=== PATIENT | female | born 1930 | race Caucasian/White ===

== ENCOUNTER 2016-11-24 22:33 | Emergency (ER) | payer MEDICARE ==
[~2016-11-24] VITALS: Ht 162.6 cm; Wt 75.4 kg
[~2016-11-24 22:33] MED LIST: CYCL5TAB PO; FLUT1INH; NAPR-576 PO; SYNT112T PO; TRAM50 PO; Z.0.OXYGEN INH; Z.0.OXYGENDME NC
[2016-11-24 22:41] VITALS: BP 151/60; PULSE 88; RESP 22; TEMP 97.8; O2SAT 95
[2016-11-24] MEDS ORDERED: LEVO112T2 PO (22:47)
[2016-11-24 22:52] VITALS: BP 151/60; PULSE 82; RESP 22; TEMP 97.8; O2SAT 93
[2016-11-24] MEDS ORDERED: SODIUM CHLORIDE 0.9% FLUSH 10 ML FLUSH IVF PRN (23:00)
[2016-11-24] MEDS ORDERED: ONDANSETRON HCL 4 MG/2 ML VIAL IV ONE (23:00)
[2016-11-24 23:02] VITALS: RESP 22; O2SAT 94
[2016-11-24 23:23] LABS: AUTOMATED NEUTROPHIL # 5.1 TH/MM3 (1.8-7.7); BASOPHIL # 0.3 TH/MM3 (0-0.2); BASOPHIL % 4.2 % (0.0-2.0); EOSINOPHIL # 0.1 TH/MM3 (0-0.4); EOSINOPHIL % 1.3 % (0.0-4.0); HEMATOCRIT 42.2 % (35.0-46.0); HEMO FLAGS DIFF FINAL; LYMPH % 15.2 % (9.0-44.0); LYMPHOCYTE # 1.1 TH/MM3 (1.0-4.8); MEAN CELL VOLUME 93.5 FL (80.0-100.0); MEAN CORPUSCULAR HEMOGLOBIN 31.5 PG (27.0-34.0); MEAN CORPUSCULAR HGB CONC 33.7 % (32.0-36.0); MONO % 7.4 % (0.0-8.0); NEUT % 71.9 % (16.0-70.0); PLATELET COUNT 161 TH/MM3 (150-450); RED BLOOD COUNT 4.52 MIL/MM3 (4.00-5.30); RED CELL DISTRIBUTION WIDTH 12.2 % (11.6-17.2); WHITE BLOOD COUNT 7.1 TH/MM3 (4.0-11.0)
--- NOTE | 2016-11-24 23:23 | PD ---
HPI Chief Complaint: Cardiac Complaint Time Seen by Provider: 22:53 Travel History International Travel<30 days: No Contact w/Intl Traveler<30days: No Traveled to known affect area: No History of Present Illness HPI Is a well 86 year-old woman presents to the emergency department complaining of chest pressure that started while she was eating. She was eating roast pork when she felt like he got stuck in her throat. She couldn't swallow and she couldn't get up. She tried to drink fluids but it felt like it was just all setting of her chest. This happened to her one time in the past. She's never seen a GI doctor. Last time it resolved on her own. She is feeling somewhat improved now. Likely medical history is edema and hypothyroidism. No history of heart disease. No other complaints. History Past Medical History Narrative Medical Edema Hypothyroidism Tetanus Vaccination: Unknown Influenza Vaccination: No Social History Alcohol Use: Yes (Socially) Tobacco Use: No Allergies-Medications (Allergen,Severity, Reaction): Coded Allergies: No Known Allergies (Unverified , 11/24/16) Reported Meds & Prescriptions Reported Meds & Active Scripts Active Reported Levothyroxine (Levothyroxine Sodium) 112 Mcg Tab 112 Mcg PO DAILY Review of Systems Except as stated in HPI: all other systems reviewed are Neg Physical Exam Narrative GENERAL: Well-appearing 86 year-old woman, no acute distress. SKIN: Focused skin assessment warm/dry. NECK: Trachea midline. No JVD. CARDIOVASCULAR: Regular rate and rhythm. No murmur appreciated. RESPIRATORY: No accessory muscle use. Clear to auscultation. Breath sounds equal bilaterally. GASTROINTESTINAL: Abdomen soft, non-tender, nondistended. Hepatic and splenic margins not palpable. MUSCULOSKELETAL: No obvious deformities. Pitting edema both lower extremities. NEUROLOGICAL: Awake and alert. No obvious cranial nerve deficits. Motor grossly within normal limits. Normal speech. PSYCHIATRIC: Appropriate mood and affect; insight and judgment normal. Data Data Last Documented VS Vital Signs Date Time Temp Pulse Resp B/P Pulse Ox O2 Delivery O2 Flow Rate FiO2 11/25/16 00:19 78 20 153/75 92 Room Air 11/24/16 22:52 97.8 Orders Electrocardiogram (11/24/16 22:53) Complete Blood Count With Diff (11/24/16 22:53) Comprehensive Metabolic Panel (11/24/16 22:53) Troponin I (11/24/16 22:53) Chest, Single Ap (11/24/16 22:53) Ecg Monitoring (11/24/16 22:53) Iv Access Insert/Monitor (11/24/16 22:53) Oximetry (11/24/16 22:53) Oxygen Administration (11/24/16 22:53) Sodium Chloride 0.9% Flush (Ns Flush) (11/24/16 23:00) Ondansetron Inj (Zofran Inj) (11/24/16 23:00) Labs Laboratory Tests Test 11/24/16 23:10 White Blood Count 7.1 TH/MM3 Red Blood Count 4.52 MIL/MM3 Hemoglobin 14.2 GM/DL Hematocrit 42.2 % Mean Corpuscular Volume 93.5 FL Mean Corpuscular Hemoglobin 31.5 PG Mean Corpuscular Hemoglobin 33.7 % Concent Red Cell Distribution Width 12.2 % Platelet Count 161 TH/MM3 Mean Platelet Volume 8.3 FL Neutrophils (%) (Auto) 71.9 % Lymphocytes (%) (Auto) 15.2 % Monocytes (%) (Auto) 7.4 % Eosinophils (%) (Auto) 1.3 % Basophils (%) (Auto) 4.2 % Neutrophils # (Auto) 5.1 TH/MM3 Lymphocytes # (Auto) 1.1 TH/MM3 Monocytes # (Auto) 0.5 TH/MM3 Eosinophils # (Auto) 0.1 TH/MM3 Basophils # (Auto) 0.3 TH/MM3 CBC Comment DIFF FINAL Differential Comment Sodium Level 143 MEQ/L Potassium Level 3.6 MEQ/L Chloride Level 107 MEQ/L Carbon Dioxide Level 27.7 MEQ/L Anion Gap 8 MEQ/L Blood Urea Nitrogen 21 MG/DL Creatinine 1.10 MG/DL Estimat Glomerular Filtration 47 ML/MIN Rate Random Glucose 147 MG/DL Calcium Level 9.6 MG/DL Total Bilirubin 0.4 MG/DL Aspartate Amino Transf 11 U/L (AST/SGOT) Alanine Aminotransferase 18 U/L (ALT/SGPT) Alkaline Phosphatase 82 U/L Troponin I LESS THAN 0.02 NG/ML Total Protein 7.1 GM/DL Albumin 4.0 GM/DL MDM Medical Decision Making Medical Screen Exam Complete: Yes Emergency Medical Condition: Yes Interpretation(s) LABS: CBC unremarkable. CMP generally unremarkable. Troponin negative. 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 Cannot exclude a mass. Suggest PA lateral some views of the chest to further evaluate. Lungs clear otherwise. Differential Diagnosis Esophageal meat impaction, ACS, hepatobiliary disease, other Narrative Course Medical decision-making 86 year-old woman hadn't apparent esophageal meat fractured that appears to be resolving. We'll check labs, x-ray, EKG, and if improved, likely outpatient follow-up with GI. Diagnosis Primary Impression: Esophageal obstruction due to food impaction Referrals: Andrew Darden MD call for appointment Additional Instructions: Follow-up with gastroenterology for further evaluation for possible esophageal strictures. Follow-up with your primary doctor for repeat chest x-ray Return to the emergency department for any recurrent or worsening symptoms. Chew your food until completely soft, and take small bites to try to reduce chance of recurrence. Disposition: 01 DISCHARGE HOME Condition: Stable Carlos Cabrales MD November 24, 2016 23:23
--- NOTE | 2016-11-24 23:42 | RADHPO ---
EXAM DATE/TIME: 11/24/2016 23:31 [facility] COMPARISON: CT PULMONARY ANGIOGRAM, November 04, 2013, 18:21. CHEST SINGLE AP, November 04, 2013, 16:50. INDICATIONS : Chest pain. MEDICAL HISTORY : None. SURGICAL HISTORY : None. ENCOUNTER: Initial ACUITY: 1 day PAIN SCORE: 7/10 LOCATION: Bilateral chest FINDINGS: A single frontal view the chest shows a lobulation to the right lung base. Remaining lungs are clear. No effusions. Heart is normal in size. 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 I cannot exclude a mass. I suggest PA and lateral views of the chest to further evaluate. Clear lungs o therwise. Davy Gutierrez Jr., MD on November 24, 2016 at 23:39 Board Certified Radiologist. This report was verified electronically.
[2016-11-24 23:59] LABS: CHLORIDE 107 MEQ/L (98-107); POTASSIUM 3.6 MEQ/L (3.5-5.1); SODIUM (NA) 143 MEQ/L (136-145)
[2016-11-25 00:03] LABS: ANION GAP 8 MEQ/L (5-15); BICARBONATE 27.7 MEQ/L (21.0-32.0); BLOOD UREA NITROGEN 21 MG/DL (7-18)
[2016-11-25 00:06] LABS: ALT (GPT) 18 U/L (10-53); AST (GOT) 11 U/L (15-37); GLOMERULAR FILTRATION RATE 47 ML/MIN (>89)
[2016-11-25 00:07] LABS: TOTAL BILIRUBIN ADULT 0.4 MG/DL (0.2-1.0)
[2016-11-25 00:09] LABS: ALKALINE PHOSPHATASE 82 U/L (45-117)
[2016-11-25 00:19] VITALS: BP 153/75; PULSE 78; RESP 20; O2SAT 92
--- NOTE | 2016-11-25 11:17 | EKG ---
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
== END 2016-11-25 01:06 | disposition home or self-care (01) ==
LOC: PHED 22:33
DX: K22.2 Esophageal obstruction (principal); I49.3 Ventricular premature depolarization; I45.2 Bifascicular block; E03.9 Hypothyroidism, unspecified; R60.0 Localized edema
CPT/HCPCS: 71010; 80053; 84484; 85025; 93005; 96374; 99284; J2405

== ENCOUNTER 2016-12-03 11:05 | Inpatient (IN) | payer MEDICARE ==
[~2016-12-03] VITALS: Ht 162.6 cm; Wt 72.7 kg
[~2016-12-03 11:05] MED LIST changes: -CYCL5TAB PO; -FLUT1INH; +LEVO112T2 PO; -NAPR-576 PO; -SYNT112T PO; -TRAM50 PO; -Z.0.OXYGEN INH; -Z.0.OXYGENDME NC
[2016-12-03 11:15] VITALS: BP 172/100; PULSE 78; RESP 18; TEMP 98; O2SAT 90
--- NOTE | 2016-12-03 11:37 | PD ---
HPI Chief Complaint: Hip Injury Time Seen by Provider: 11:25 Travel History International Travel<30 days: No Contact w/Intl Traveler<30days: No Traveled to known affect area: No History of Present Illness HPI 86-year-old female complains of left hip pain. Patient states that she fell from standing physician is morning. Patient states that she landed on the right side of the buttock however started having severe left-sided hip pain. Patient states that she hit her head on the floor. Patient denies loss of consciousness. Patient denies any headache. Patient denies any visual change. Patient denies any neck pain. Patient denies any chest pain or shortness of breath. Patient denies abdominal pain. Patient denies any back pain. Patient denies any focal weakness or numbness of extremity. Patient states the pain is sharp pain severe pain localized to left hip. Patient denies any pain radiation. Patient states that she is unable to have much movement of the left hip joint after the fall. On a scale of 1-10 the pain is an 8. EMS was called. Patient was given morphine 10 mg IV prior to arrival. Patient has history hypothyroidism on levothyroxine daily. PFSH Past Medical History Arthritis: Yes Asthma: No Autoimmune Disease: No Heart Rhythm Problems: No Cancer: No Cardiovascular Problems: No High Cholesterol: No Chest Pain: No Congestive Heart Failure: No COPD: No Cerebrovascular Accident: No Diabetes: No Endocrine: Yes Gastrointestinal Disorders: Yes GERD: No Genitourinary: No Hiatal Hernia: No Immune Disorder: No Musculoskeletal: Yes Neurologic: Yes Psychiatric: No Reproductive: No Respiratory: Yes Sleep Apnea: No Thyroid Disease: Yes Ulcer: No Past Surgical History Tonsillectomy: Yes Other Surgery: No Social History Alcohol Use: Yes (Socially) Tobacco Use: No Substance Use: No Allergies-Medications (Allergen,Severity, Reaction): Coded Allergies: No Known Allergies (Unverified , 11/24/16) Reported Meds & Prescriptions Reported Meds & Active Scripts Active Reported Levothyroxine (Levothyroxine Sodium) 112 Mcg Tab 112 Mcg PO DAILY Review of Systems General / Constitutional: No: Fever Eyes: No: Visual changes HENT: No: Headaches Cardiovascular: No: Chest Pain or Discomfort Respiratory: No: Shortness of Breath Gastrointestinal: No: Abdominal Pain Genitourinary: No: Dysuria Musculoskeletal: Positive: Pain Skin: No Rash Neurologic: No: Weakness Psychiatric: No: Depression Endocrine: No: Polydipsia Hematologic/Lymphatic: No: Easy Bruising Physical Exam Narrative GENERAL: Well-nourished, well-developed patient. SKIN: Focused skin assessment warm/dry. HEAD: Normocephalic. EYES: No scleral icterus. No injection or drainage. NECK: Supple, trachea midline. No JVD or lymphadenopathy. CARDIOVASCULAR: Regular rate and rhythm without murmurs, gallops, or rubs. RESPIRATORY: Breath sounds equal bilaterally. No accessory muscle use. GASTROINTESTINAL: Abdomen soft, non-tender, nondistended. MUSCULOSKELETAL: No cyanosis, or edema. Patient has moderate tenderness on palpation lateral aspect the left hip joint. Limited range of motion of the left hip secondary to pain. Sensorimotor function distally intact. BACK: Nontender without obvious deformity. No CVA tenderness. Neurologic exam: Patient's awake and alert oriented 3. No obvious focal neurological deficit. Data Data Last Documented VS Vital Signs Date Time Temp Pulse Resp B/P Pulse Ox O2 Delivery O2 Flow Rate FiO2 12/03/16 11:36 20 94 Nasal Cannula 2 12/03/16 11:15 98.0 78 172/100 Orders Electrocardiogram (12/03/16 11:32) Complete Blood Count With Diff (12/03/16 11:32) Comprehensive Metabolic Panel (12/03/16 11:32) Prothrombin Time / Inr (Pt) (12/03/16 11:32) Act Partial Throm Time (Ptt) (12/03/16 11:32) Urinalysis - C+S If Indicated (12/03/16 11:32) Thyroid Stimulating Hormone (12/03/16 11:32) Iv Access Insert/Monitor (12/03/16 11:32) Ecg Monitoring (12/03/16 11:32) Oximetry (12/03/16 11:32) Hip, Uni(Ap&Lat) W Ap Pelvis (12/03/16 11:32) Chest, Single Ap (12/03/16 11:32) Urinary Catheter Insert/Apply (12/03/16 12:24) Sodium Chlor 0.9% 1000 Ml Inj (Ns 1000 M (12/03/16 12:45) Labs Laboratory Tests Test 12/03/16 11:45 White Blood Count 7.9 TH/MM3 Red Blood Count 4.42 MIL/MM3 Hemoglobin 13.7 GM/DL Hematocrit 40.7 % Mean Corpuscular Volume 92.1 FL Mean Corpuscular Hemoglobin 31.0 PG Mean Corpuscular Hemoglobin 33.6 % Concent Red Cell Distribution Width 12.7 % Platelet Count 139 TH/MM3 Mean Platelet Volume 8.8 FL Neutrophils (%) (Auto) 80.7 % Lymphocytes (%) (Auto) 12.2 % Monocytes (%) (Auto) 6.3 % Eosinophils (%) (Auto) 0.5 % Basophils (%) (Auto) 0.3 % Neutrophils # (Auto) 6.4 TH/MM3 Lymphocytes # (Auto) 1.0 TH/MM3 Monocytes # (Auto) 0.5 TH/MM3 Eosinophils # (Auto) 0.0 TH/MM3 Basophils # (Auto) 0.0 TH/MM3 CBC Comment DIFF FINAL Differential Comment Prothrombin Time 11.2 SEC Prothromb Time International 1.0 RATIO Ratio Activated Partial 26.6 SEC Thromboplast Time Sodium Level 140 MEQ/L Potassium Level 3.9 MEQ/L Chloride Level 108 MEQ/L Carbon Dioxide Level 25.0 MEQ/L Anion Gap 7 MEQ/L Blood Urea Nitrogen 14 MG/DL Creatinine 0.72 MG/DL Estimat Glomerular Filtration 77 ML/MIN Rate Random Glucose 125 MG/DL Calcium Level 8.8 MG/DL Total Bilirubin 0.4 MG/DL Aspartate Amino Transf 21 U/L (AST/SGOT) Alanine Aminotransferase 18 U/L (ALT/SGPT) Alkaline Phosphatase 71 U/L Total Protein 6.6 GM/DL Albumin 3.7 GM/DL Thyroid Stimulating Hormone 4.070 uIU/ML 3rd Gen [facility] Medical Decision Making Medical Screen Exam Complete: Yes Emergency Medical Condition: Yes Interpretation(s) 12:36 PM. CBC within normal limit. CMP within normal limit. TSH 4.07. Differential Diagnosis Differential diagnosis including contusion, fracture, dislocation. Narrative Course 86-year-old female with left hip pain. Status post fall. Nothing by mouth. Normal saline solution 100 cc an hour. Diagnosis Primary Impression: Fracture of femur, left, closed Qualified Code: S72.142A - Closed displaced intertrochanteric fracture of left femur, initial encounter Admitting Information Admitting Physician Requests: Admit Luis Eduardo Tamayo MD December 03, 2016 11:37
[2016-12-03 11:59] LABS: AUTOMATED NEUTROPHIL # 6.4 TH/MM3 (1.8-7.7); BASOPHIL % 0.3 % (0.0-2.0); EOSINOPHIL % 0.5 % (0.0-4.0); HEMATOCRIT 40.7 % (35.0-46.0); HEMO FLAGS DIFF FINAL; LYMPH % 12.2 % (9.0-44.0); MEAN CELL VOLUME 92.1 FL (80.0-100.0); MEAN CORPUSCULAR HGB CONC 33.6 % (32.0-36.0); MONO % 6.3 % (0.0-8.0); NEUT % 80.7 % (16.0-70.0); PLATELET COUNT 139 TH/MM3 (150-450); RED BLOOD COUNT 4.42 MIL/MM3 (4.00-5.30); RED CELL DISTRIBUTION WIDTH 12.7 % (11.6-17.2); WHITE BLOOD COUNT 7.9 TH/MM3 (4.0-11.0)
[2016-12-03] MEDS ORDERED: ONDANSETRON HCL 4 MG/2 ML VIAL IV PUSH ONE (12:00)
[2016-12-03] MEDS ORDERED: PHENYLEPH/NS 1000 MCG/10 ML SYR IV ONE (12:00)
[2016-12-03] MEDS ORDERED: PROPOFOL 200 MG/20 ML AMP IV ONE (12:00)
[2016-12-03 12:09] LABS: APTT (PATIENT) 26.6 SEC (24.3-30.1); PROTHROMBIN TIME - PATIENT 11.2 SEC (9.8-11.6)
[2016-12-03 12:20] LABS: ALT (GPT) 18 U/L (10-53); ANION GAP 7 MEQ/L (5-15); AST (GOT) 21 U/L (15-37); BLOOD UREA NITROGEN 14 MG/DL (7-18); CHLORIDE 108 MEQ/L (98-107); GLOMERULAR FILTRATION RATE 77 ML/MIN (>89); POTASSIUM 3.9 MEQ/L (3.5-5.1); SODIUM (NA) 140 MEQ/L (136-145)
[2016-12-03 12:27] LABS: ALKALINE PHOSPHATASE 71 U/L (45-117); TOTAL BILIRUBIN ADULT 0.4 MG/DL (0.2-1.0)
--- NOTE | 2016-12-03 12:33 | RADRPT ---
EXAM DATE/TIME: 12/03/2016 11:52 [facility] COMPARISON: No previous studies available for comparison. INDICATIONS : Fall pain with deformity. MEDICAL HISTORY : None. SURGICAL HISTORY : None. ENCOUNTER: Initial ACUITY: 1 day PAIN SCORE: 10/10 LOCATION: Left hip FINDINGS: There is acute intertrochanteric fracture of the left hip with varus the formerly. Femoral head is no t dislocated. Osseous structures are osteopenic. The pubic symphysis is intact. CONCLUSION: 1. Intertrochanteric fracture left hip Jaylan Bermudez MD on December 03, 2016 at 12:31 Board Certified Radiologist. This report was verified electronically.
--- NOTE | 2016-12-03 12:43 | RADRPT ---
EXAM DATE/TIME: 12/03/2016 11:55 [facility] COMPARISON: CHEST SINGLE AP, November 24, 2016, 23:31. INDICATIONS : Fall pain left hip and side. MEDICAL HISTORY : None. SURGICAL HISTORY : None. ENCOUNTER: Initial ACUITY: 1 day PAIN SCORE: 10/10 LOCATION: Left hip FINDINGS: A single view of the chest demonstrates diminished lung volumes with bibasilar densities. Heart jacky l in size.. Osseous structures are intact. CONCLUSION: Bibasilar atelectasis. Khoa Ashley MD on December 03, 2016 at 12:40 Board Certified Radiologist. This report was verified electronically.
[2016-12-03] MEDS ORDERED: SODIUM CHLOR 0.9% 1000 ML INJ 1,000 ML IV SCH (12:45)
[2016-12-03] MEDS ORDERED: NAPR500T PO (14:02)
[2016-12-03 14:03] VITALS: BP 136/61; PULSE 72; RESP 16; O2SAT 96
[2016-12-03] MEDS ORDERED: MAGNESIUM HYDROXIDE SUSP 30 ML CUP PO PRN (14:30)
[2016-12-03] MEDS ORDERED: ONDANSETRON HCL 4 MG/2 ML VIAL IVP PRN ×2 (14:30→22:15)
[2016-12-03] MEDS ORDERED: NALOXONE HCL 0.4 MG/ML AMP IV PRN ×2 (14:30)
[2016-12-03] MEDS ORDERED: SODIUM CHLORIDE 0.9% FLUSH 10 ML FLUSH IV FLUSH PRN ×2 (14:30→22:15)
[2016-12-03] MEDS ORDERED: ZOLPIDEM TARTRATE 5 MG TAB PO PRN (14:30)
[2016-12-03] MEDS ORDERED: diphenhydrAMINE HCL 50 MG/ML VIAL IV PRN (14:30)
[2016-12-03] MEDS ORDERED: ACETAMINOPHEN 325 MG TAB PO PRN ×2 (14:30→22:15)
[2016-12-03] MEDS ORDERED: MORPHINE SULFATE 8 MG/ML INJ IV PUSH PRN ×2 (14:30→22:15)
[2016-12-03] MEDS ORDERED: ACETAMINOPHEN/HYDROcodone 325 MG/5 MG TAB PO PRN ×2 (14:30)
[2016-12-03] MEDS ORDERED: diphenhydrAMINE HCL 25 MG CAP PO PRN (14:30)
--- NOTE | 2016-12-03 14:38 | HHI.HP ---
HPI Service Family Medicine Primary Care Physician No Primary Care Physician Admission Diagnosis intertrochanteric fracture left femur Diagnoses: International Travel<30 Days: No Contact w/Intl Traveler<30days: No Known Affected Area: No History of Present Illness 86-year-old female currently managed for hypothyroidism, who is a patient of mine at the [facility], presented to ED with complaint of left hip pain after a fall found to have a left hip fracture. Patient states that she fell from standing this morning and landed on the right side of the buttocks and then started having severe left-sided hip pain. She hit her head on the floor, but denies loss of consciousness or a headache. She did not trip on anything, and she was not bending over. She says she did not have anything to hold onto and fell down because she lost her balance. She has fallen 4 times in past year. Denies any visual changes, neck pain, chest pain or shortness of breath or abdominal pain. Denies any back pain, or weakness or numbness of extremity. Sharp pain severe pain localized to left hip without radiation. Patient states that she was having difficulty moving the left leg after the fall. Initially an 8/10 pain, now at 6/10 after morphine by EMS. States morphine helped a little bit but not much and would like a different pain medication. (Humera Holliday MD) Review of Systems Constitutional: DENIES: Fever, Chills, Dizziness Eyes: DENIES: Blurred vision, Vision loss, Double Vision Respiratory: DENIES: Cough, Shortness of breath Cardiovascular: DENIES: Chest pain Gastrointestinal: DENIES: Abdominal pain, Constipation, Diarrhea, Nausea, Vomiting Musculoskeletal: COMPLAINS OF: Joint pain Integumentary: DENIES: Rash Neurologic: DENIES: Abnormal gait, Headache, Localized weakness (Humera Holliday MD ) Past Family Social History Past Medical History PMH: Rotator cuff (right) Frozen shoulder (left) Hypothyroid --on Synthroid "Blepharitis" per patient. (etiology unclear)- patient uses "Tobradex" (steroid containing cream) as needed, and states she's "used it forever". Peripheral vascular disease with "hole in vein in leg" PSH: none Allergies: nkda Social: Denies smoking occasional glass of wine with dinner Denies illicit drugs Had measles and mumps as a child. Also had tonsilitis OB history: menses at age 14, regular, periods stopped in late 40s 3 children--all (Humera Holliday MD) Allergies: Coded Allergies: No Known Allergies (Unverified , 11/24/16) Physical Exam Vital Signs Vital Signs Date Time Temp Pulse Resp B/P Pulse Ox O2 Delivery O2 Flow Rate FiO2 12/03/16 14:03 72 16 136/61 96 Nasal Cannula 2 12/03/16 11:36 20 94 Nasal Cannula 2 12/03/16 11:15 98.0 78 18 172/100 90 Physical Exam GENERAL: Well-nourished, well-developed patient. SKIN: Warm and dry. HEAD: Normocephalic. EYES: No scleral icterus. No injection or drainage. NECK: Supple, trachea midline. No JVD or lymphadenopathy. CARDIOVASCULAR: Regular rate and rhythm without murmurs, gallops, or rubs. RESPIRATORY: Breath sounds equal bilaterally. No accessory muscle use. GASTROINTESTINAL: Abdomen soft, non-tender, nondistended. MUSCULOSKELETAL: No cyanosis, or edema. Tenderness on palpation lateral aspect the left hip joint. Limited range of motion of the left hip secondary to pain. Sensation equal and intact of bilateral lower extremities. Moving toes of left foot well. NEURO: Patient's awake and alert oriented 3. No obvious focal neurological deficit. Laboratory Laboratory Tests Test 12/03/16 11:45 White Blood Count 7.9 Red Blood Count 4.42 Hemoglobin 13.7 Hematocrit 40.7 Mean Corpuscular Volume 92.1 Mean Corpuscular Hemoglobin 31.0 Mean Corpuscular Hemoglobin 33.6 Concent Red Cell Distribution Width 12.7 Platelet Count 139 Mean Platelet Volume 8.8 Neutrophils (%) (Auto) 80.7 Lymphocytes (%) (Auto) 12.2 Monocytes (%) (Auto) 6.3 Eosinophils (%) (Auto) 0.5 Basophils (%) (Auto) 0.3 Neutrophils # (Auto) 6.4 Lymphocytes # (Auto) 1.0 Monocytes # (Auto) 0.5 Eosinophils # (Auto) 0.0 Basophils # (Auto) 0.0 CBC Comment DIFF FINAL Differential Comment Prothrombin Time 11.2 Prothromb Time International 1.0 Ratio Activated Partial 26.6 Thromboplast Time Sodium Level 140 Potassium Level 3.9 Chloride Level 108 Carbon Dioxide Level 25.0 Anion Gap 7 Blood Urea Nitrogen 14 Creatinine 0.72 Estimat Glomerular Filtration 77 Rate Random Glucose 125 Calcium Level 8.8 Total Bilirubin 0.4 Aspartate Amino Transf 21 (AST/SGOT) Alanine Aminotransferase 18 (ALT/SGPT) Alkaline Phosphatase 71 Total Protein 6.6 Albumin 3.7 Thyroid Stimulating Hormone 4.070 3rd Gen (Humera Holliday MD) Result Diagram: 12/03/16 1145 12/03/16 1145 Imaging Last Impressions Hip and Pelvis X-Ray 12/03/16 1132 Signed Impressions: Service Date/Time: Saturday, December 03, 2016 11:52 - CONCLUSION: 1. Intertrochanteric fracture left hip Jaylan Bermudez MD Chest X-Ray 12/03/16 1132 Signed Impressions: Service Date/Time: Saturday, December 03, 2016 11:55 - CONCLUSION: Bibasilar atelectasis. Khoa Ashley MD (Humera Holliday MD) Assessment and Plan Assessment and Plan 86 yo female presented with left hip pain status post fall found to have left hip fracture Code Status DNR Discussed Condition With Discussed with patient's at bedside SDW Dr. Shea (Humera Holliday MD) Attending Attestation Patient seen and examined. Case reviewed and discussed with the resident team. Agree with plan of care as discussed with me and documented in the resident note. (Alyssa Shea MD) Problem List: (1) Fracture of femur, left, closed Status: Acute Plan: Hip Xray shows intertrochanteric fracture of left hip. CBC & CMP WNL. Plan: * Consulted Orthopedics, ER physician already spoke to ortho and they would like patient NPO for now with possible surgery later today or tomorrow * Nothing by mouth. * Normal saline solution 100 cc an hour * Dilaudid and Dunmor PO PRN pain * Zofran PRN * UA pending (2) Hypothyroid Status: Chronic Plan: TSH elevated at 4.07 (normal 0.3-3.7) Plan: * Increase home Synthroid from 112 ug to 125 ug daily * Will need to recheck TSH in 6 weeks as outpatient (3) Dietary surveillance and counseling Status: Chronic Plan: Plan: * NPO for possible surgical intervention today * Electrolytes normal, daily BMP * NS at 100 cc/hr (4) DVT prophylaxis Status: Chronic Plan: SCD nonoperative leg (Humera Holliday MD) Physician Certification 2 Midnight Certification Type: Admission for Inpatient Services Order for Inpatient Services The services are ordered in accordance with Medicare regulations or non- Medicare payer requirements, as applicable. In the case of services not specified as inpatient-only, they are appropriately provided as inpatient services in accordance with the 2-midnight benchmark. Estimated LOS (days): 2 2 days is the estimated time the patient will need to remain in the hospital, assuming treatment plan goals are met and no additional complications. Post-Hospital Plan: Not yet determined (Humera Holliday MD) Problem Qualifiers (1) Fracture of femur, left, closed: Qualified Code: S72.142A - Closed displaced intertrochanteric fracture of left femur, initial encounter (2) Hypothyroid: Qualified Code: E03.9 - Acquired hypothyroidism Humera Holliday MD December 03, 2016 14:38 Alyssa Shea MD December 04, 2016 13:12
[2016-12-03] MEDS ORDERED: hydrALAZINE HCL 10 MG TAB PO PRN (14:45)
[2016-12-03] MEDS ORDERED: SENNOSIDES 8.6 MG TAB PO PRN (14:45)
[2016-12-03] MEDS ORDERED: cloNIDine HCL 0.1 MG TAB PO PRN (14:45)
[2016-12-03] MEDS ORDERED: HYDROmorphone HCL PF 1 MG/ML VIAL IV PUSH PRN (15:15)
[2016-12-03 15:48] VITALS: BP 109/53; PULSE 71; RESP 16; O2SAT 97
[2016-12-03 16:55] VITALS: BP 141/65; PULSE 71; RESP 19; TEMP 95.9; O2SAT 93
--- NOTE | 2016-12-03 17:47 | PD.CONS ---
cc: Demetrius Wright MD HPI Service Orthopedic Surgeons Consult Requested By ED staff Reason for Consult Left hip fracture Primary Care Physician No Primary Care Physician Admission Diagnosis intertrochanteric fracture left femur Diagnoses: (1) COPD (chronic obstructive pulmonary disease) (2) Hypothyroidism (3) Intertrochanteric fracture of left femur Chief Complaint: Left hip pain History of Present Illness 86-year-old female currently managed for hypothyroidism, who is a patient of mine at the [facility], presented to ED with complaint of left hip pain after a fall found to have a left hip fracture. Patient states that she fell from standing this morning and landed on the right side of the buttocks and then started having severe left-sided hip pain. She hit her head on the floor, but denies loss of consciousness or a headache. She did not trip on anything, and she was not bending over. She says she did not have anything to hold onto and fell down because she lost her balance. She has fallen 4 times in past year. Denies any visual changes, neck pain, chest pain or shortness of breath or abdominal pain. Denies any back pain, or weakness or numbness of extremity. She denies any other extremity complaints related to the fall. Sharp pain severe pain localized to left hip without radiation. Patient states that she was having difficulty moving the left leg after the fall. She was admitted to the medical service with orthopedic consultation requested. Review of Systems Reviewed and well outlined in the medical record Past Family Social History Past Medical History Past Medical History PMH: Rotator cuff (right) Frozen shoulder (left) Hypothyroid --on Synthroid "Blepharitis" per patient. (etiology unclear)- patient uses "Tobradex" (steroid containing cream) as needed, and states she's "used it forever". Peripheral vascular disease with "hole in vein in leg" PSH: none Allergies: nkda Social: Denies smoking occasional glass of wine with dinner Denies illicit drugs Had measles and mumps as a child. Also had tonsilitis OB history: menses at age 14, regular, periods stopped in late 40s 3 children--all Allergies: Coded Allergies: No Known Allergies (Unverified , 11/24/16) Allergies: Coded Allergies: No Known Allergies (Unverified , 11/24/16) Active Ordered Medications Current Medications Medications (Trade) Dose Ordered Sig/Kaya Route Start Time Stop Time Status Last Admin (NS 1000 ml Inj) 1,000 ml @ 100 mls/hr Q10H IV 12/03/16 12:45 12/03/16 14:02 (Synthroid) 125 mcg DAILY@0600 PO 12/04/16 06:00 (NS Flush) 2 ml UNSCH PRN IV FLUSH 12/03/16 14:30 (NS Flush) 2 ml BID IV FLUSH 12/03/16 21:00 (Leigh 5-325 Mg) 1 tab Q4H PRN PO 12/03/16 14:30 (Leigh 5-325 Mg) 2 tab Q4H PRN PO 12/03/16 14:30 (Zofran Inj) 4 mg Q6H PRN IVP 12/03/16 14:30 (Tylenol) 650 mg Q4H PRN PO 12/03/16 14:30 (Milk Of Magnesia Liq) 30 ml Q6H PRN PO 12/03/16 14:30 (Benadryl Inj) 25 mg Q4H PRN IV 12/03/16 14:30 (Benadryl) 25 mg Q4H PRN PO 12/03/16 14:30 (Ambien) 5 mg HS PRN PO 12/03/16 14:30 (Narcan Inj) 0.4 mg UNSCH PRN IV 12/03/16 14:30 (Catapres) 0.1 mg Q4HR PRN PO 12/03/16 14:45 (Apresoline) 10 mg Q4HR PRN PO 12/03/16 14:45 (Senokot) 8.6 mg BID PRN PO 12/03/16 14:45 (Dilaudid Pf Inj) 1 mg Q4H PRN IV PUSH 12/03/16 15:15 12/03/16 15:47 Reported Meds & Active Scripts Active Reported Naproxen 500 Mg Tab 500 Mg PO PRN Levothyroxine (Levothyroxine Sodium) 112 Mcg Tab 112 Mcg PO DAILY Physical Exam Vital Signs Vital Signs Date Time Temp Pulse Resp B/P Pulse Ox O2 Delivery O2 Flow Rate FiO2 12/03/16 16:55 95.9 71 19 141/65 93 12/03/16 16:27 14 12/03/16 15:48 71 16 109/53 97 Nasal Cannula 2 12/03/16 14:03 72 16 136/61 96 Nasal Cannula 2 12/03/16 11:36 20 94 Nasal Cannula 2 12/03/16 11:15 98.0 78 18 172/100 90 Physical Exam The patient is awake alert and answers questions appropriately. She is in moderate discomfort. She has pain with any attempted movement of the left lower extremity. The extremity is shortened and external rotated. She is able to move her toes freely and has good capillary refill and sensation. There are no localizing signs of upper extremity or right lower extremity injury. Laboratory Laboratory Tests Test 12/03/16 11:45 White Blood Count 7.9 Red Blood Count 4.42 Hemoglobin 13.7 Hematocrit 40.7 Mean Corpuscular Volume 92.1 Mean Corpuscular Hemoglobin 31.0 Mean Corpuscular Hemoglobin 33.6 Concent Red Cell Distribution Width 12.7 Platelet Count 139 Mean Platelet Volume 8.8 Neutrophils (%) (Auto) 80.7 Lymphocytes (%) (Auto) 12.2 Monocytes (%) (Auto) 6.3 Eosinophils (%) (Auto) 0.5 Basophils (%) (Auto) 0.3 Neutrophils # (Auto) 6.4 Lymphocytes # (Auto) 1.0 Monocytes # (Auto) 0.5 Eosinophils # (Auto) 0.0 Basophils # (Auto) 0.0 CBC Comment DIFF FINAL Differential Comment Prothrombin Time 11.2 Prothromb Time International 1.0 Ratio Activated Partial 26.6 Thromboplast Time Sodium Level 140 Potassium Level 3.9 Chloride Level 108 Carbon Dioxide Level 25.0 Anion Gap 7 Blood Urea Nitrogen 14 Creatinine 0.72 Estimat Glomerular Filtration 77 Rate Random Glucose 125 Calcium Level 8.8 Total Bilirubin 0.4 Aspartate Amino Transf 21 (AST/SGOT) Alanine Aminotransferase 18 (ALT/SGPT) Alkaline Phosphatase 71 Total Protein 6.6 Albumin 3.7 Thyroid Stimulating Hormone 4.070 3rd Gen Result Diagram: 12/03/16 1145 12/03/16 1145 Imaging Last 48 hours Impressions Hip and Pelvis X-Ray 12/03/16 1132 Signed Impressions: Service Date/Time: Saturday, December 03, 2016 11:52 - CONCLUSION: 1. Intertrochanteric fracture left hip Jaylan Bermudez MD Chest X-Ray 12/03/16 1132 Signed Impressions: Service Date/Time: Saturday, December 03, 2016 11:55 - CONCLUSION: Bibasilar atelectasis. Khoa Ashley MD Assessment & Plan Problem List: (1) COPD (chronic obstructive pulmonary disease) (2) Hypothyroidism (3) Intertrochanteric fracture of left femur Assessment and Plan The findings were discussed. Recommendations are given for surgical fixation to allow mobilization and pain control. The nature of the procedure, the risks , expected benefits, as well as the postoperative expectations were discussed with her in detail. In addition, the alternatives to treatment and risk of same were discussed. She acknowledges full understanding and agrees to it. Demetrius Wright MD December 03, 2016 17:47
[2016-12-03 18:55] LABS: BACTERIA, URINE RARE /hpf; BLOOD, URINE NEG (NEG); COMMENT (UR) CULT NOT INDICATED; CULTURE IF INDICATED CULT NOT INDICATED; GLUCOSE,URINE NEG (NEG); KETONE, URINE NEG (NEG); MUCUS URINE FEW /lpf (OCC); NITRITE,URINE NEG (NEG); SQUAMOUS EPITHELIAL CELL URINE <1 /hpf (0-5); URINE COLOR YELLOW (YELLW/STRAW)
[2016-12-03] MEDS ORDERED: GENTAMICIN SULFATE 80 MG/2 ML VIAL ONE (18:59)
[2016-12-03 19:30] VITALS: BP 178/82; PULSE 91; RESP 18; TEMP 96; O2SAT 99
[2016-12-03] MEDS ORDERED: POVIDONE IODINE 5% (ANTISEPSIS KIT) 4 APPLICATIONS EACH NARE PRN (20:00)
[2016-12-03] MEDS ORDERED: CHLORHEXIDINE GLUCONATE 2 % 1 PACK (2 CLOTHS) TOPICAL PRN (20:00)
[2016-12-03] MEDS ORDERED: INSULIN HUMAN REGULAR 1,000 UNITS/10 ML VIAL SQ PRN (20:00)
[2016-12-03] MEDS ORDERED: LACTATED RINGER'S 1000 ML IV PRN (20:00)
[2016-12-03] MEDS ORDERED: METOPROLOL TARTRATE 25 MG TAB PO PRN (20:00)
[2016-12-03] MEDS ORDERED: SODIUM CHLORID 0.9% 500 ML IV PRN (20:00)
[2016-12-03] MEDS ORDERED: ceFAZolin 2 GM PREMIX 50 ML ONE (20:22)
[2016-12-03] MEDS ORDERED: ACETAMINOPHEN 1000 MG/100 ML VIAL IV ONE (20:23)
[2016-12-03] MEDS ORDERED: fentaNYL CITRATE 250 MCG/5 ML AMP ONE (20:23)
[2016-12-03] MEDS ORDERED: FAMOTIDINE 20 MG/2 ML VIAL ONE (20:24)
[2016-12-03] MEDS ORDERED: SODIUM CHLORIDE 0.9% FLUSH 10 ML FLUSH IV FLUSH SCH (21:00)
--- NOTE | 2016-12-03 22:05 | PD.OP ---
cc: Demetrius Wright MD Operative Report Date of Surgery: December 03, 2016 Preoperative Diagnosis: (1) Intertrochanteric fracture of left femur Postoperative Diagnosis: (1) Intertrochanteric fracture of left femur Procedure: Closed reduction with trochanteric nail fixation left proximal femur fracture Implants used: Synthes intermediate troch nail Anesthesia: general Surgeon: Demetrius Wright Pets Salesperson(s): OR staff Operation and Findings: Indications: This 86-year-old female who has had multiple falls recently fell onto her left hip. She had pain and inability to ambulate. She presented to [facility]. X-rays revealed a displaced intertrochanteric fracture of the proximal femur. Recommendations are given for internal fixation. Procedure and findings: The patient was taken to the operative suite and after undergoing an adequate level of general anesthesia was placed supine on the fracture table. The right lower extremity was positioned in skin traction and the preoperative reduction checked in both the AP and lateral planes with the C- arm. There was noted to be a large greater trochanteric fragment which extended distally. It was then prepped and draped in usual sterile fashion with ChloraPrep. Preoperative antibiotic consisted of Ancef 2 g IV. An incision was made over the lateral aspect of the hip extending from the greater trochanter for distance approximately 3 cm. This was carried down to skin and subcutaneous tense tissue with a knife. Hemostasis was obtained electrocautery. The muscular fascia was incised and split longitudinally. An entry point was selected at the tip of the greater trochanter. This was entered with a threaded guidepin. The position was checked in both the AP and lateral planes with the C-arm. It was subsequently overdrilled. An 11 x 130 Synthes intermediate trochanteric nail was then impacted in the place. Utilizing the outrigger device an additional incision was made distally. A threaded guidepin was advanced through the lateral cortex, across the nail, into the femoral neck and seated in the subchondral bone of the femoral head. The position was checked in both the AP and lateral planes with the C-arm. A measurement was then made. A 95 compression screw was selected. The lateral cortex was overdrilled. The screw was then seated. The locking mechanism was then seated proximally. Utilizing the outrigger device a percutaneous incision was made distally. A trocar was placed against the lateral cortex. The distal interlocking screw hole was drilled and the appropriate length screw placed. The position of the fracture reduction and placement of the internal fixation were checked in both the AP and lateral planes with the C-arm. The wounds were then thoroughly irrigated. They were closed in layers utilizing 0 Vicryl suture on the muscular fascia, 2-0 Vicryl suture on the subcutaneous tense tissue and kvng on the skin. Sterile dressings were applied, the patient was awakened, transferred to the hospital bed and taken to the recovery room in stable condition. Estimated blood loss: 100 cc Complications: None Demetrius Wright MD December 03, 2016 22:05
[2016-12-03] MEDS ORDERED: BISACODYL 10 MG SUPP RECTAL PRN (22:15)
[2016-12-03] MEDS ORDERED: TEMAZEPAM 15 MG CAP PO PRN (22:15)
[2016-12-03] MEDS ORDERED: ALUMINUM/MAGNESIUM/SIMETH 30 ML CUP PO PRN (22:15)
[2016-12-03] MEDS ORDERED: Post-op Orders (for Pharmacy) MISC XX ONE (22:15)
[2016-12-03] MEDS ORDERED: POVIDONE IODINE 10% SOLN 118 ML BOTTLE TOPICAL PRN (22:15)
[2016-12-03] MEDS ORDERED: MORPHINE SULFATE 4 MG/ML INJ IV PUSH PRN (22:30)
--- NOTE | 2016-12-03 22:35 | RADRPT ---
EXAM DATE/TIME: 12/03/2016 21:35 [place] COMPARISON: No previous studies available for comparison. INDICATIONS : ORIF left hip. MEDICAL HISTORY : None. SURGICAL HISTORY : None. ENCOUNTER: Initial ACUITY: 1 day PAIN SCORE: Non-responsive. LOCATION: Left hip FINDINGS: There is arya and screw fixation across a proximal left femur fracture with mild residual displacement . No complications identified. CONCLUSION: 1. Fixation proximal left femur fracture. Jeffery Oliveira MD on December 03, 2016 at 22:31 Board Certified Radiologist. This report was verified electronically.
[2016-12-03 22:40] LABS: HEMATOCRIT 39.9 % (35.0-46.0); REVIEW FLAG FINAL
[2016-12-04] VITALS (9 sets, daily range): BP systolic 110–153; BP diastolic 56–68; PULSE 83–104; RESP 17–19; TEMP 96.5–100.4; O2SAT 94–98
[2016-12-04] MEDS: LEVOTHYROXINE SODIUM 125 MCG TAB PO SCH (06:33)
[2016-12-04] MEDS: ceFAZolin 2 GM PREMIX 50 ML IV SCH ×3 (06:33→12:53)
[2016-12-04] MEDS: ACETAMINOPHEN/HYDROcodone 325 MG/5 MG TAB PO PRN ×4 (06:47→21:58)
[2016-12-04 07:46] LABS: BASOPHIL % 0.1 % (0.0-2.0); EOSINOPHIL % 0.5 % (0.0-4.0); HEMATOCRIT 35.4 % (35.0-46.0); HEMO FLAGS DIFF FINAL; LYMPH % 8.4 % (9.0-44.0); LYMPHOCYTE # 0.8 TH/MM3 (1.0-4.8); MEAN CELL VOLUME 92.6 FL (80.0-100.0); MEAN CORPUSCULAR HEMOGLOBIN 32.2 PG (27.0-34.0); MEAN CORPUSCULAR HGB CONC 34.8 % (32.0-36.0); PLATELET COUNT 132 TH/MM3 (150-450); RED BLOOD COUNT 3.83 MIL/MM3 (4.00-5.30); RED CELL DISTRIBUTION WIDTH 12.9 % (11.6-17.2); WHITE BLOOD COUNT 9.5 TH/MM3 (4.0-11.0)
[2016-12-04 08:12] LABS: BICARBONATE 27.1 MEQ/L (21.0-32.0)
[2016-12-04] MEDS: SODIUM CHLORIDE 0.9% FLUSH 10 ML FLUSH IV FLUSH SCH ×2 (09:00→21:58)
[2016-12-04] MEDS: RIVAROXABAN 10 MG TAB PO SCH (09:05)
[2016-12-04] MEDS: LACTATED RINGER'S 1000 ML INJ 1,000 ML IV SCH ×2 (10:38→22:46)
--- NOTE | 2016-12-04 11:06 | EKG ---
Date Performed: 12/03/2016 Time Performed: 12:40:56 PTAGE: 86 years EKG: Sinus rhythm MARKED LEFT AXIS DEVIATION RIGHT BUNDLE BRANCH BLOCK ABNORMAL ECG PREVIOUS TRACING : 11/24/2016 22.36 DOCTOR: Carlos Putnam Interpretating Date/Time 12/04/2016 11:04:43
--- NOTE | 2016-12-04 11:18 | HHI.HP ---
HPI Service Family Medicine Primary Care Physician No Primary Care Physician Admission Diagnosis intertrochanteric fracture left femur Diagnoses: (1) Fracture of femur, left, closed Diagnosis: Principal (2) Hypothyroid Diagnosis: Principal (3) Dietary surveillance and counseling Diagnosis: Principal (4) DVT prophylaxis Diagnosis: Principal International Travel<30 Days: No Contact w/Intl Traveler<30days: No Known Affected Area: No History of Present Illness Ms Holder is an 86-year-old female currently managed for hypothyroidism, who is a patient of Dr Holliday at the [facility], and presented to ED with complaint of left hip pain after a fall found to have a left hip fracture. Patient states that she fell from standing and landed on the right side of the buttocks and then started having severe left-sided hip pain. She hit her head on the floor, but denies loss of consciousness or a headache. She did not trip on anything, and she was not bending over. She says she did not have anything to hold onto and fell down because she lost her balance. She has fallen 4 times in past year. Denies any visual changes, neck pain, chest pain or shortness of breath or abdominal pain. Denies any back pain, or weakness or numbness of extremity. Sharp pain severe pain localized to left hip without radiation. Patient states that she was having difficulty moving the left leg after the fall. Initially an 8/10 pain, now at 6/10 after morphine by EMS. States morphine helped a little bit but not much and would like a different pain medication. Overnight, she had surgery and only took one po "pain pill". She is having some pain but not severe at this point. She feels well otherwise without other complaints except for the pain. Review of Systems Other Constitutional: DENIES: Fever, Chills, Dizziness Eyes: DENIES: Blurred vision, Vision loss, Double Vision Respiratory: DENIES: Cough, Shortness of breath Cardiovascular: DENIES: Chest pain Gastrointestinal: DENIES: Abdominal pain, Constipation, Diarrhea, Nausea, Vomiting Musculoskeletal: COMPLAINS OF: Joint pain Integumentary: DENIES: Rash Neurologic: DENIES: Abnormal gait, Headache, Localized weakness Past Family Social History Past Medical History PMH: Rotator cuff (right) Frozen shoulder (left) Hypothyroid --on Synthroid "Blepharitis" per patient. (etiology unclear)- patient uses "Tobradex" (steroid containing cream) as needed, and states she's "used it forever". Peripheral vascular disease with "hole in vein in leg" PSH: none Allergies: nkda Social: Denies smoking occasional glass of wine with dinner Denies illicit drugs Had measles and mumps as a child. Also had tonsillitis OB history: menses at age 14, regular, periods stopped in late 40s 3 children--all Allergies: Coded Allergies: No Known Allergies (Unverified , 11/24/16) Physical Exam Vital Signs Vital Signs Date Time Temp Pulse Resp B/P Pulse Ox O2 Delivery O2 Flow Rate FiO2 12/04/16 08:26 95 Nasal Cannula 3.00 12/04/16 08:00 98.8 85 19 124/58 96 12/04/16 07:54 18 12/04/16 04:05 97.8 87 17 125/60 97 12/04/16 02:37 Nasal Cannula 3.00 12/04/16 01:26 84 12/04/16 00:29 96.5 83 18 114/57 98 12/03/16 23:00 89 16 169/72 96 Nasal Cannula 3 12/03/16 22:45 88 16 166/64 98 Nasal Cannula 3 12/03/16 22:30 91 16 165/70 97 Nasal Cannula 3 12/03/16 22:15 98.1 80 12 156/70 98 Nasal Cannula 3 12/03/16 20:00 99 Nasal Cannula 2 12/03/16 19:30 96.0 91 18 178/82 99 12/03/16 16:55 95.9 71 19 141/65 93 12/03/16 16:27 14 12/03/16 15:48 71 16 109/53 97 Nasal Cannula 2 12/03/16 14:03 72 16 136/61 96 Nasal Cannula 2 12/03/16 11:36 20 94 Nasal Cannula 2 Physical Exam GENERAL: Well-nourished, well-developed patient. pleasant and cooperative SKIN: Warm and dry. HEAD: Normocephalic. EYES: No scleral icterus. No injection or drainage. NECK: Supple, trachea midline. No JVD or lymphadenopathy. CARDIOVASCULAR: Regular rate and rhythm without murmurs, gallops, or rubs. RESPIRATORY: Breath sounds equal bilaterally. No accessory muscle use. GASTROINTESTINAL: Abdomen soft, non-tender, nondistended. MUSCULOSKELETAL: No cyanosis, or edema. Tenderness on palpation lateral aspect the left hip joint. post op with straightening of her leg. Sensation equal and intact of bilateral lower extremities. Moving toes of left foot well. NEURO: Patient's awake and alert oriented 3. No obvious focal neurological deficit. Laboratory Laboratory Tests Test 12/03/16 12/03/16 12/03/16 12/03/16 11:45 18:17 18:35 22:25 White Blood Count 7.9 Red Blood Count 4.42 Hemoglobin 13.7 13.5 Hematocrit 40.7 39.9 Mean Corpuscular Volume 92.1 Mean Corpuscular Hemoglobin 31.0 Mean Corpuscular Hemoglobin 33.6 Concent Red Cell Distribution Width 12.7 Platelet Count 139 Mean Platelet Volume 8.8 Neutrophils (%) (Auto) 80.7 Lymphocytes (%) (Auto) 12.2 Monocytes (%) (Auto) 6.3 Eosinophils (%) (Auto) 0.5 Basophils (%) (Auto) 0.3 Neutrophils # (Auto) 6.4 Lymphocytes # (Auto) 1.0 Monocytes # (Auto) 0.5 Eosinophils # (Auto) 0.0 Basophils # (Auto) 0.0 CBC Comment DIFF FINAL Differential Comment Prothrombin Time 11.2 Prothromb Time International 1.0 Ratio Activated Partial 26.6 Thromboplast Time Sodium Level 140 Potassium Level 3.9 Chloride Level 108 Carbon Dioxide Level 25.0 Anion Gap 7 Blood Urea Nitrogen 14 Creatinine 0.72 Estimat Glomerular Filtration 77 Rate Random Glucose 125 Calcium Level 8.8 Total Bilirubin 0.4 Aspartate Amino Transf 21 (AST/SGOT) Alanine Aminotransferase 18 (ALT/SGPT) Alkaline Phosphatase 71 Total Protein 6.6 Albumin 3.7 Thyroid Stimulating Hormone 4.070 3rd Gen Blood Type O POSITIVE Antibody Screen NEGATIVE Blood Bank Comment Urine Color YELLOW Urine Turbidity CLEAR Urine pH 5.0 Urine Specific [place] 1.019 Urine Protein NEG Urine Glucose (UA) NEG Urine Ketones NEG Urine Occult Blood NEG Urine Nitrite NEG Urine Bilirubin NEG Urine Urobilinogen LESS THAN 2.0 Urine Leukocyte Esterase NEG Urine RBC 2 Urine WBC 3 Urine Squamous Epithelial <1 Cells Urine Amorphous Sediment RARE Urine Bacteria RARE Urine Mucus FEW Microscopic Urinalysis Comment CULT NOT INDICATED Test 12/04/16 07:13 White Blood Count 9.5 Red Blood Count 3.83 Hemoglobin 12.3 Hematocrit 35.4 Mean Corpuscular Volume 92.6 Mean Corpuscular Hemoglobin 32.2 Mean Corpuscular Hemoglobin 34.8 Concent Red Cell Distribution Width 12.9 Platelet Count 132 Mean Platelet Volume 8.9 Neutrophils (%) (Auto) 84.0 Lymphocytes (%) (Auto) 8.4 Monocytes (%) (Auto) 7.0 Eosinophils (%) (Auto) 0.5 Basophils (%) (Auto) 0.1 Neutrophils # (Auto) 8.0 Lymphocytes # (Auto) 0.8 Monocytes # (Auto) 0.7 Eosinophils # (Auto) 0.0 Basophils # (Auto) 0.0 CBC Comment DIFF FINAL Differential Comment Sodium Level 139 Potassium Level 4.0 Chloride Level 106 Carbon Dioxide Level 27.1 Anion Gap 6 Blood Urea Nitrogen 8 Creatinine 0.73 Estimat Glomerular Filtration 76 Rate Random Glucose 145 Calcium Level 8.4 Result Diagram: 12/04/16 0713 12/04/16 0713 Imaging Last Impressions Hip and Pelvis X-Ray 12/03/16 113 Signed Impressions: Service Date/Time: Saturday, December 03, 2016 11:52 - CONCLUSION: 1. Intertrochanteric fracture left hip Jaylan Bermudez MD Chest X-Ray 12/03/16 1132 Signed Impressions: Service Date/Time: Saturday, December 03, 2016 11:55 - CONCLUSION: Bibasilar atelectasis. Khoa Ashley MD Assessment and Plan Assessment and Plan 86 yo female presented with left hip pain status post fall found to have left hip fracture Problem List: (1) Fracture of femur, left, closed Status: Acute Plan: Hip Xray shows intertrochanteric fracture of left hip. CBC & CMP WNL. Plan: * Consulted Orthopedics, surgery done * Normal saline solution 100 cc an hour, heplock iv when taking good po * Dilaudid and [place] PO PRN pain * Zofran PRN * UA pending (2) Hypothyroid Status: Chronic Plan: TSH elevated at 4.07 (normal 0.3-3.7) Plan: * Increase home Synthroid from 112 ug to 125 ug daily * Will need to recheck TSH in 6 weeks as outpatient (3) Dietary surveillance and counseling Status: Chronic Plan: Plan: * should be able top have regular diet * Electrolytes normal, daily BMP * NS at 100 cc/hr, heplock (4) DVT prophylaxis Status: Chronic Plan: SCD nonoperative leg will have anticoagulation per Orthopedics Physician Certification 2 Midnight Certification Type: Admission for Inpatient Services Order for Inpatient Services The services are ordered in accordance with Medicare regulations or non- Medicare payer requirements, as applicable. In the case of services not specified as inpatient-only, they are appropriately provided as inpatient services in accordance with the 2-midnight benchmark. Estimated LOS (days): 3 3 days is the estimated time the patient will need to remain in the hospital, assuming treatment plan goals are met and no additional complications. Post-Hospital Plan: Not yet determined Problem Qualifiers (1) Fracture of femur, left, closed: Qualified Code: S72.142A - Closed displaced intertrochanteric fracture of left femur, initial encounter (2) Hypothyroid: Qualified Code: E03.9 - Acquired hypothyroidism Alyssa Shea MD December 04, 2016 11:18
[2016-12-04] MEDS: MAGNESIUM HYDROXIDE SUSP 30 ML CUP PO PRN (17:29)
--- NOTE | 2016-12-04 21:00 | PD.ORT.PN ---
Subjective Post Op Day #: 1 Subjective Remarks Pt sitting upright in bed, awake and somewhat confused. She admits left hip pain is well controlled at this time. Expresses interest in rehab placement upon discharge. No other complaints. Objective Vitals Vital Signs Date Time Temp Pulse Resp B/P Pulse Ox O2 Delivery O2 Flow Rate FiO2 12/04/16 19:25 100.4 104 18 153/68 94 12/04/16 16:00 97.8 98 17 145/58 94 12/04/16 11:55 98.4 83 18 110/56 97 12/04/16 08:26 95 Nasal Cannula 3.00 12/04/16 08:00 98.8 85 19 124/58 96 12/04/16 07:54 18 12/04/16 04:05 97.8 87 17 125/60 97 12/04/16 02:37 Nasal Cannula 3.00 12/04/16 01:26 84 12/04/16 00:29 96.5 83 18 114/57 98 12/03/16 23:00 89 16 169/72 96 Nasal Cannula 3 12/03/16 22:45 88 16 166/64 98 Nasal Cannula 3 12/03/16 22:30 91 16 165/70 97 Nasal Cannula 3 12/03/16 22:15 98.1 80 12 156/70 98 Nasal Cannula 3 I/O 12/03/16 12/03/16 12/03/16 12/04/16 12/04/16 12/04/16 07:00 15:00 23:00 07:00 15:00 23:00 Intake Total 700 ml 480 ml 720 ml Output Total 500 ml 400 ml 700 ml Balance 200 ml 80 ml 20 ml Intake Oral 480 ml 720 ml Other 700 ml Output Urine Total 400 ml 700 ml Estimated Blood Loss 100 ml Other 400 ml # Bowel Movements 0 Result Diagram: 12/04/1613 12/04/16712 Imaging Last Impressions Hip and Pelvis X-Ray 12/03/16 113 Signed Impressions: Service Date/Time: Saturday, December 03, 2016 11:52 - CONCLUSION: 1. Intertrochanteric fracture left hip Jaylan Bermudez MD Chest X-Ray 12/03/16 1132 Signed Impressions: Service Date/Time: Saturday, December 03, 2016 11:55 - CONCLUSION: Bibasilar atelectasis. Khoa Ashley MD Hip X-Ray 12/03/16 0000 Signed Impressions: Service Date/Time: Saturday, December 03, 2016 21:35 - CONCLUSION: 1. Fixation proximal left femur fracture. Jeffery Oliveira MD Procedures Closed reduction with trochanteric nail fixation left proximal femur fracture () Objective Remarks LLE: Dressing dry and intact. Tender to palpation with mild swelling around incision site. Appropriate range of motion expected post operatively. Freely able to move distal digits. No calf pain. Negative Jocelyn's sign. Good cap refill. 2+ pedal pulses. Neurovascular intact. Assessment & Plan Ortho Post Op Day #: 1 Problem List: (1) Intertrochanteric fracture of left femur (2) COPD (chronic obstructive pulmonary disease) (3) Hypothyroidism Assessment and Plan Ortho status stable POD #1 Closed reduction with trochanteric nail fixation left proximal femur fracture 50% weight bearing, progress rehab. Xarelto for DVT prophylaxis. Daily dressing changes starting POD #2 Continue pain management and bowel regimen. CM for HHC vs rehab, most likely d/c to rehab. Discharge planning. Chely Dill December 04, 2016 21:00
[2016-12-05] VITALS (7 sets, daily range): BP systolic 110–156; BP diastolic 52–73; PULSE 91–100; RESP 17–18; TEMP 97.3–100.1; O2SAT 92–96
[2016-12-05] MEDS: LEVOTHYROXINE SODIUM 125 MCG TAB PO SCH (05:15)
[2016-12-05] MEDS: ACETAMINOPHEN/HYDROcodone 325 MG/5 MG TAB PO PRN ×3 (05:15→20:39)
[2016-12-05] MEDS: MAGNESIUM HYDROXIDE SUSP 30 ML CUP PO PRN ×2 (05:15→08:05)
--- NOTE | 2016-12-05 06:57 | PD.ORT.PN ---
Subjective Post Op Day #: 2 Subjective Remarks Pt sitting upright in bed, awake and alert. She seems less confused this morning. She admits left hip pain is well controlled at this time. Expresses interest in rehab placement upon discharge. No other complaints. Objective Vitals Vital Signs Date Time Temp Pulse Resp B/P Pulse Ox O2 Delivery O2 Flow Rate FiO2 12/05/16 04:25 99.8 100 18 145/67 95 12/05/16 00:21 100.1 100 18 132/58 92 12/04/16 21:17 94 Nasal Cannula 3.00 12/04/16 19:25 100.4 104 18 153/68 94 12/04/16 16:00 97.8 98 17 145/58 94 12/04/16 11:55 98.4 83 18 110/56 97 12/04/16 08:26 95 Nasal Cannula 3.00 12/04/16 08:00 98.8 85 19 124/58 96 12/04/16 07:54 18 I/O 12/04/16 12/04/16 12/04/16 12/05/16 12/05/16 12/05/16 07:00 15:00 23:00 07:00 15:00 23:00 Intake Total 480 ml 720 ml 360 ml 360 ml Output Total 400 ml 700 ml 350 ml 300 ml Balance 80 ml 20 ml 10 ml 60 ml Intake Oral 480 ml 720 ml 360 ml 360 ml Output Urine Total 400 ml 700 ml 350 ml 300 ml # Bowel Movements 0 0 0 Result Diagram: 12/04/16 0713 12/04/16 0713 Imaging Last Impressions Hip and Pelvis X-Ray 12/03/16 1132 Signed Impressions: Service Date/Time: Saturday, December 03, 2016 11:52 - CONCLUSION: 1. Intertrochanteric fracture left hip Jaylan Bermudez MD Chest X-Ray 12/03/16 1132 Signed Impressions: Service Date/Time: Saturday, December 03, 2016 11:55 - CONCLUSION: Bibasilar atelectasis. Khoa Ashley MD Hip X-Ray 12/03/16 0000 Signed Impressions: Service Date/Time: Saturday, December 03, 2016 21:35 - CONCLUSION: 1. Fixation proximal left femur fracture. Jeffery Oliveira MD Procedures Closed reduction with trochanteric nail fixation left proximal femur fracture () Objective Remarks LLE: Dressing dry and intact. Tender to palpation with mild swelling around incision site. Appropriate range of motion expected post operatively. Freely able to move distal digits. No calf pain. Negative Jocelyn's sign. Good cap refill. 2+ pedal pulses. Neurovascular intact. Assessment & Plan Ortho Post Op Day #: 2 Problem List: (1) Intertrochanteric fracture of left femur (2) COPD (chronic obstructive pulmonary disease) (3) Hypothyroidism Assessment and Plan Ortho status stable POD #2 Closed reduction with trochanteric nail fixation left proximal femur fracture 50% weight bearing, progress rehab. Xarelto for DVT prophylaxis. Daily dressing changes Continue pain management and bowel regimen. CM for HHC vs rehab, most likely d/c to rehab. Discharge planning - most likely tomorrow. Chely Dill December 05, 2016 06:57
[2016-12-05 07:45] LABS: AUTOMATED NEUTROPHIL # 8.6 TH/MM3 (1.8-7.7); BASOPHIL % 0.3 % (0.0-2.0); EOSINOPHIL # 0.1 TH/MM3 (0-0.4); EOSINOPHIL % 1.3 % (0.0-4.0); HEMATOCRIT 33.7 % (35.0-46.0); HEMO FLAGS DIFF FINAL; LYMPH % 8.2 % (9.0-44.0); LYMPHOCYTE # 0.9 TH/MM3 (1.0-4.8); MEAN CELL VOLUME 92.4 FL (80.0-100.0); MEAN CORPUSCULAR HEMOGLOBIN 31.5 PG (27.0-34.0); MEAN CORPUSCULAR HGB CONC 34.1 % (32.0-36.0); MONO % 9.5 % (0.0-8.0); NEUT % 80.7 % (16.0-70.0); PLATELET COUNT 116 TH/MM3 (150-450); RED BLOOD COUNT 3.65 MIL/MM3 (4.00-5.30); RED CELL DISTRIBUTION WIDTH 12.9 % (11.6-17.2); WHITE BLOOD COUNT 10.7 TH/MM3 (4.0-11.0)
[2016-12-05 07:58] LABS: BICARBONATE 28.7 MEQ/L (21.0-32.0); POTASSIUM 3.6 MEQ/L (3.5-5.1)
[2016-12-05] MEDS: MULTIVITAMINS/MINERALS THERAPEUTIC TAB PO SCH ×2 (08:05→20:39)
[2016-12-05] MEDS: DOCUSATE SODIUM 100 MG CAP PO SCH ×2 (08:05→20:39)
[2016-12-05] MEDS: SODIUM CHLORIDE 0.9% FLUSH 10 ML FLUSH IV FLUSH SCH ×2 (08:05→20:39)
--- NOTE | 2016-12-05 09:28 | HHI.FPPN ---
Subjective Remarks Patient is doing well this morning. Complains of some pain at the surgery site and some shortness of breath, but otherwise doing well. Denies chest pain, nausea, vomiting, diarrhea, fever, chills. Overnight did have some low-grade temps. Counseled extensively on importance of incentive spirometer use. (Nabeel Staley MD R2) Objective Vitals Vital Signs Date Time Temp Pulse Resp B/P Pulse Ox O2 Delivery O2 Flow Rate FiO2 12/05/16 07:29 97.9 91 18 116/53 96 12/05/16 04:25 99.8 100 18 145/67 95 12/05/16 00:21 100.1 100 18 132/58 92 12/04/16 21:17 94 Nasal Cannula 3.00 12/04/16 19:25 100.4 104 18 153/68 94 12/04/16 16:00 97.8 98 17 145/58 94 12/04/16 11:55 98.4 83 18 110/56 97 I/O 12/04/16 12/04/16 12/04/16 12/05/16 12/05/16 12/05/16 07:00 15:00 23:00 07:00 15:00 23:00 Intake Total 480 ml 720 ml 360 ml 360 ml Output Total 400 ml 700 ml 350 ml 300 ml Balance 80 ml 20 ml 10 ml 60 ml Intake Oral 480 ml 720 ml 360 ml 360 ml Output Urine Total 400 ml 700 ml 350 ml 300 ml # Bowel Movements 0 0 0 (Nabeel Staley MD R2) Result Diagram: 12/05/16 0650 12/05/16 0650 Objective Remarks GENERAL: Well-nourished, well-developed patient. pleasant and cooperative SKIN: Warm and dry. HEAD: Normocephalic. EYES: No scleral icterus. No injection or drainage. NECK: Supple, trachea midline. No JVD or lymphadenopathy. CARDIOVASCULAR: Regular rate and rhythm without murmurs, gallops, or rubs. RESPIRATORY: Breath sounds equal bilaterally. No accessory muscle use. GASTROINTESTINAL: Abdomen soft, non-tender, nondistended. MUSCULOSKELETAL: No cyanosis, or edema. Tenderness on palpation lateral aspect the left hip joint. post op with straightening of her leg. Sensation equal and intact of bilateral lower extremities. Moving toes of left foot well. NEURO: Patient's awake and alert oriented 3. No obvious focal neurological deficit. (Nabeel Staley MD R2) A/P Assessment and Plan 86 yo female presented with left hip pain status post fall found to have left hip fracture Discharge Planning Likely tomorrow to rehabilitation facility pending orthopedic clearance and physical therapy recommendations. (Nabeel Staley MD R2) Attending Attestation Patient seen and examined. Case reviewed and discussed with the resident team. Agree with plan of care as discussed with me and documented in the resident note. (Alyssa Shea MD) Problem List: (1) Fracture of femur, left, closed Status: Acute Plan: Orthopedic surgery consulted Status post reduction with trochanteric nail fixation left proximal femur Postop day #2 Case management consulted for home health care versus rehabilitation Physical therapy consult It is unclear whether the patient understands the risk involved going home with home health care versus the recommended option which is going to rehabilitation facility. Patient may have underlying dementia and may not be able to understand that going home will be detrimental to her further care. (2) Hypothyroid Status: Chronic Plan: TSH elevated at 4.07 (normal 0.3-3.7) Plan: * Continue Synthroid 125 ug daily * Will need to recheck TSH in 6 weeks as outpatient (3) Dietary surveillance and counseling Status: Chronic Plan: Fluids: Tolerating by mouth Electrolytes: Monitor and replace when necessary Nutrition: Tolerating normal diet. (4) DVT prophylaxis Status: Chronic Plan: xarelto 10 mg per ortho (Nabeel Staley MD R2) Problem Qualifiers (1) Fracture of femur, left, closed: Qualified Code: S72.142A - Closed displaced intertrochanteric fracture of left femur, initial encounter (2) Hypothyroid: Qualified Code: E03.9 - Acquired hypothyroidism Nabeel Staley MD R2 December 05, 2016 09:28 Alyssa Shea MD December 09, 2016 09:44
[2016-12-05] MEDS: RIVAROXABAN 10 MG TAB PO SCH (10:41)
[2016-12-06] VITALS: BP 140/77; PULSE 90; RESP 16; TEMP 97.9; O2SAT 92
[2016-12-06 04:00] VITALS: BP 150/76; PULSE 91; RESP 16; TEMP 98.2; O2SAT 94
[2016-12-06] MEDS: ACETAMINOPHEN/HYDROcodone 325 MG/5 MG TAB PO PRN (04:14)
[2016-12-06] MEDS: LEVOTHYROXINE SODIUM 125 MCG TAB PO SCH (04:14)
--- NOTE | 2016-12-06 07:19 | PD.ORT.PN ---
Subjective Post Op Day #: 3 Subjective Remarks Pt sitting upright in bed, asleep but arousable. She admits left hip pain is well controlled at this time. She feels ready to be discharged to rehab at this time. No other complaints. Objective Vitals Vital Signs Date Time Temp Pulse Resp B/P Pulse Ox O2 Delivery O2 Flow Rate FiO2 12/06/16 04:00 98.2 91 16 150/76 94 12/06/16 00:00 97.9 90 16 140/77 92 12/05/16 20:20 98.4 97 17 156/73 93 12/05/16 15:46 97.5 98 18 110/52 93 12/05/16 11:23 97.3 97 18 142/66 93 12/05/16 10:19 96 21 12/05/16 07:29 97.9 91 18 116/53 96 I/O 12/05/16 12/05/16 12/05/16 12/06/16 12/06/16 12/06/16 07:00 15:00 23:00 07:00 15:00 23:00 Intake Total 360 ml 240 ml 360 ml 240 ml Output Total 300 ml Balance 60 ml 240 ml 360 ml 240 ml Intake Oral 360 ml 240 ml 360 ml 240 ml Output Urine Total 300 ml # Voids 1 1 1 # Bowel Movements 0 0 Result Diagram: 12/05/16 0650 12/05/16 0650 Imaging Last Impressions Hip and Pelvis X-Ray 12/03/16 1132 Signed Impressions: Service Date/Time: Saturday, December 03, 2016 11:52 - CONCLUSION: 1. Intertrochanteric fracture left hip Jaylan Bermudez MD Chest X-Ray 12/03/16 1132 Signed Impressions: Service Date/Time: Saturday, December 03, 2016 11:55 - CONCLUSION: Bibasilar atelectasis. Khoa Ashley MD Hip X-Ray 12/03/16 0000 Signed Impressions: Service Date/Time: Saturday, December 03, 2016 21:35 - CONCLUSION: 1. Fixation proximal left femur fracture. Jeffery Oliveira MD Procedures Closed reduction with trochanteric nail fixation left proximal femur fracture () Objective Remarks LLE: Dressing dry and intact. Tender to palpation with mild swelling around incision site. Appropriate range of motion expected post operatively. Freely able to move distal digits. No calf pain. Negative Jocelyn's sign. Good cap refill. 2+ pedal pulses. Neurovascular intact. Assessment & Plan Ortho Post Op Day #: 3 Problem List: (1) Intertrochanteric fracture of left femur (2) COPD (chronic obstructive pulmonary disease) (3) Hypothyroidism Assessment and Plan Ortho status stable POD #3 Closed reduction with trochanteric nail fixation left proximal femur fracture 50% weight bearing, progress rehab. Xarelto for DVT prophylaxis. Daily dressing changes. RN to d/c kvng 12/11/16 Continue pain management and bowel regimen. Clear for discharge from an orthopedic standpoint - to rehab facility Follow up with Dr Wright in 2-3 weeks. Chely Dill December 06, 2016 07:19
[2016-12-06] MEDS ORDERED: WALKER/ADULT/FO1 MIS (07:21)
[2016-12-06] MEDS ORDERED: XARE10TA PO (07:21)
[2016-12-06 07:28] VITALS: BP 128/60; PULSE 90; RESP 19; TEMP 97.5; O2SAT 98
[2016-12-06] MEDS: MULTIVITAMINS/MINERALS THERAPEUTIC TAB PO SCH (07:33)
[2016-12-06] MEDS: DOCUSATE SODIUM 100 MG CAP PO SCH (07:33)
[2016-12-06] MEDS: SODIUM CHLORIDE 0.9% FLUSH 10 ML FLUSH IV FLUSH SCH (07:34)
--- NOTE | 2016-12-06 09:01 | HHI.FPPN ---
Subjective Remarks No acute events overnight. Patient has been afebrile. Patient is in good spirits this morning overall and understands the need for physical therapy. She states she is still in pain; she has only been taking her prescribed [place] about every 7-8 hours; she was encouraged to take this more frequently as needed to help control pain and to make sure to take her medications for her bowel regimen. She denies any fevers. Denies chest pain or shortness of breath. (Uziel Gibbs MD R1) Objective Vitals Vital Signs Date Time Temp Pulse Resp B/P Pulse Ox O2 Delivery O2 Flow Rate FiO2 12/06/16 07:28 97.5 90 19 128/60 98 12/06/16 04:00 98.2 91 16 150/76 94 12/06/16 00:00 97.9 90 16 140/77 92 12/05/16 20:20 98.4 97 17 156/73 93 12/05/16 15:46 97.5 98 18 110/52 93 12/05/16 11:23 97.3 97 18 142/66 93 12/05/16 10:19 96 21 I/O 12/05/16 12/05/16 12/05/16 12/06/16 12/06/16 12/06/16 07:00 15:00 23:00 07:00 15:00 23:00 Intake Total 360 ml 240 ml 360 ml 240 ml Output Total 300 ml Balance 60 ml 240 ml 360 ml 240 ml Intake Oral 360 ml 240 ml 360 ml 240 ml Output Urine Total 300 ml # Voids 1 1 1 # Bowel Movements 0 0 (Uziel Gibbs MD R1) Result Diagram: 12/05/16 0650 12/05/16 0650 Objective Remarks GENERAL: Well-nourished, well-developed patient. pleasant and cooperative SKIN: Warm and dry. HEAD: Normocephalic. EYES: No scleral icterus. No injection or drainage. NECK: Supple, trachea midline. No JVD or lymphadenopathy. CARDIOVASCULAR: Regular rate and rhythm without murmurs, gallops, or rubs. RESPIRATORY: Breath sounds equal bilaterally. No accessory muscle use. GASTROINTESTINAL: Abdomen soft, non-tender, nondistended. MUSCULOSKELETAL: No cyanosis, or edema. Tenderness on palpation lateral aspect the left hip joint. post op with straightening of her leg. Sensation equal and intact of bilateral lower extremities. Moving toes of left foot well. NEURO: Patient's awake and alert oriented 3. No obvious focal neurological deficit. (Uziel Gibbs MD R1) A/P Assessment and Plan 86 yo female presented with left hip pain status post fall found to have left hip fracture Discharge Planning Stable for discharge today to SNF for continued physical therapy (Uziel Gibbs MD R1) Attending Attestation Patient seen and examined. Case reviewed and discussed with the resident team. Agree with plan of care as discussed with me and documented in the resident note. (Alyssa Shea MD) Problem List: (1) Fracture of femur, left, closed Status: Acute Plan: Orthopedic surgery consulted, has cleared patient for discharge from ortho standpoint Status post reduction with trochanteric nail fixation left proximal femur Postop day #3 Case management consulted to assist for placement likely to a SNF which has accepted the patient Physical therapy consult (2) Hypothyroid Status: Chronic Plan: TSH elevated at 4.07 (normal 0.3-3.7) Plan: * Continue Synthroid 125 ug daily * Will need to recheck TSH in 6 weeks as outpatient (3) Dietary surveillance and counseling Status: Chronic Plan: Fluids: Tolerating by mouth Electrolytes: Monitor and replace when necessary Nutrition: Tolerating normal diet. (4) DVT prophylaxis Status: Chronic Plan: xarelto 10 mg per ortho (Uziel Gibbs MD R1) Problem Qualifiers (1) Fracture of femur, left, closed: Qualified Code: S72.142A - Closed displaced intertrochanteric fracture of left femur, initial encounter (2) Hypothyroid: Qualified Code: E03.9 - Acquired hypothyroidism Uziel Gibbs MD R1 December 06, 2016 09:01 Alyssa Shea MD December 09, 2016 09:44
[2016-12-06] MEDS ORDERED: HYDR-3516 PO ×2 (09:27→12:00)
--- NOTE | 2016-12-06 09:28 | HHI.DCPOC ---
Discharge Care Plan Diagnosis: (1) Fracture of femur, left, closed (2) Hypothyroid Goals to Promote Your Health * To prevent worsening of your condition and complications * To maintain your health at the optimal level Directions to Meet Your Goals Take your medications as prescribed Follow your dietary instruction Follow activity as directed Keep your appointments as scheduled Take your immunizations and boosters as scheduled If your symptoms worsen call your PCP, if no PCP go to Urgent Care Center or Emergency Room Smoking is Dangerous to Your Health. Avoid second hand smoke Call the 24-hour hour crisis hotline for domestic abuse at Uziel Gibbs MD R1 December 06, 2016 09:28
[2016-12-06] MEDS: RIVAROXABAN 10 MG TAB PO SCH (10:26)
[2016-12-06 11:30] VITALS: BP 151/63; PULSE 87; RESP 19; TEMP 97.2; O2SAT 98
[2016-12-06] MEDS ORDERED: PERI8.6T PO (13:54)
[2016-12-06] MEDS ORDERED: MILKSUS PO (13:54)
--- NOTE | 2016-12-06 15:02 | HHI.DS ---
Discharge Summary Admission Date December 03, 2016 at 14:12 Discharge Date: December 06, 2016 Admitting Diagnosis intertrochanteric fracture left femur (1) Fracture of femur, left, closed Diagnosis: Principal Plan: Orthopedic surgery consulted, has cleared patient for discharge from ortho standpoint Status post reduction with trochanteric nail fixation left proximal femur Postop day #3 Case management consulted to assist for placement likely to a SNF which has accepted the patient Physical therapy consult (2) Hypothyroid Diagnosis: Secondary Plan: TSH elevated at 4.07 (normal 0.3-3.7) Plan: * Continue Synthroid 125 ug daily * Will need to recheck TSH in 6 weeks as outpatient (3) Dietary surveillance and counseling Diagnosis: Secondary Plan: Fluids: Tolerating by mouth Electrolytes: Monitor and replace when necessary Nutrition: Tolerating normal diet. (4) DVT prophylaxis Diagnosis: Secondary Plan: xarelto 10 mg per ortho Consultants Orthopedic surgery Procedures Reduction with trochanteric nail fixation left proximal femur Brief History Ms Holder is an 86-year-old female currently managed for hypothyroidism, who is a patient of Dr Holliday at [facility], and presented to ED with complaint of left hip pain after a fall found to have a left hip fracture. Patient states that she fell from standing and landed on the right side of the buttocks and then started having severe left-sided hip pain. She hit her head on the floor, but denies loss of consciousness or a headache. She did not trip on anything, and she was not bending over. She says she did not have anything to hold onto and fell down because she lost her balance. She has fallen 4 times in past year. Denies any visual changes, neck pain, chest pain or shortness of breath or abdominal pain. Denies any back pain, or weakness or numbness of extremity. Sharp pain severe pain localized to left hip without radiation. Patient states that she was having difficulty moving the left leg after the fall. Initially an 8/10 pain, now at 6/10 after morphine by EMS. States morphine helped a little bit but not much and would like a different pain medication. Overnight, she had surgery and only took one po "pain pill". She is having some pain but not severe at this point. She feels well otherwise without other complaints except for the pain. CBC/BMP: 12/05/16 0650 12/05/16 0650 Significant Findings Laboratory Tests Test 12/03/16 12/04/16 12/05/16 18:35 07:13 06:50 Urine Bacteria RARE /hpf (NONE) Urine Mucus FEW /lpf (OCC) Red Blood Count 3.83 MIL/MM3 3.65 MIL/MM3 (4.00-5.30) (4.00-5.30) Platelet Count 132 TH/MM3 116 TH/MM3 (150-450) (150-450) Neutrophils (%) (Auto) 84.0 % 80.7 % (16.0-70.0) (16.0-70.0) Lymphocytes (%) (Auto) 8.4 % 8.2 % (9.0-44.0) (9.0-44.0) Neutrophils # (Auto) 8.0 TH/MM3 8.6 TH/MM3 (1.8-7.7) (1.8-7.7) Lymphocytes # (Auto) 0.8 TH/MM3 0.9 TH/MM3 (1.0-4.8) (1.0-4.8) Estimat Glomerular Filtration 76 ML/MIN (>89) Rate Random Glucose 145 MG/DL 122 MG/DL (74-106) (74-106) Calcium Level 8.4 MG/DL 8.4 MG/DL (8.5-10.1) (8.5-10.1) Hemoglobin 11.5 GM/DL (11.6-15.3) Hematocrit 33.7 % (35.0-46.0) Monocytes (%) (Auto) 9.5 % (0.0-8.0) Monocytes # (Auto) 1.0 TH/MM3 (0-0.9) PE at Discharge GENERAL: Well-nourished, well-developed patient. pleasant and cooperative SKIN: Warm and dry. HEAD: Normocephalic. EYES: No scleral icterus. No injection or drainage. NECK: Supple, trachea midline. No JVD or lymphadenopathy. CARDIOVASCULAR: Regular rate and rhythm without murmurs, gallops, or rubs. RESPIRATORY: Breath sounds equal bilaterally. No accessory muscle use. GASTROINTESTINAL: Abdomen soft, non-tender, nondistended. MUSCULOSKELETAL: No cyanosis, or edema. Tenderness on palpation lateral aspect the left hip joint. post op with straightening of her leg. Sensation equal and intact of bilateral lower extremities. Moving toes of left foot well. NEURO: Patient's awake and alert oriented 3. No obvious focal neurological deficit. Hospital Course Orthopedic surgery was consulted and patient underwent reduction with trochanteric nail fixation of her left proximal femur. She did not have any complications postop. PT was consulted; patient will require long-term rehab as patient requires total help to ambulate and transfer. Pt Condition on Discharge: Stable Discharge Disposition: Discharge to SNF Discharge Instructions DIET: Follow Instructions for: As Tolerated, No Restrictions Activities you can perform: Partial Weight Bearing Activities to Avoid: Lifting/Bending Follow up Referrals: Internal Medicine Orthopedics - 2 Weeks @ [facility] with Demetrius Wright MD New Orders: TSH 3RD GEN - 6 Weeks New Medications: Sennosides-Docusate Sodium (Zuleyka-Colace) 8.6-50 Mg Tab 1 TAB PO BID Constipation #60 Ref 0 TAB Walker/Adult/Folding (Walker/Adult/Folding) 1 Mis Mis 1 EA .ROUTE DIRECTED #1 Ref 0 EA Hydrocodone-Acetaminophen (Hydrocodone-Acetaminophen) 5-325 mg Tab 1 TAB PO Q4H PRN PAIN LESS THAN 5 ON SCALE #28 TAB Magnesium Hydroxide Liq (Milk of Magnesia Liq) 400 Mg/5 Ml Susp 30 ML PO DAILY PRN CONSTIPATION #30 Rivaroxaban (Xarelto) 10 Mg Tab 10 MG PO Q24H Prevent Blood Clot #20 TAB Continued Medications: Levothyroxine (Levothyroxine) 112 Mcg Tab 112 MCG PO DAILY Thyroid #30 Ref 0 TAB Uziel Gibbs MD R1 December 06, 2016 15:02
== END 2016-12-06 13:00 | DRG 482 ==
LOC: NEPC 11:05 → NEDA 14:12 → N06A 16:37
PROVIDERS: ADMIT Family Medicine; ATTEND Family Medicine
PROC: 0QS706Z Reposition Left Upper Femur with Intramedullary Internal Fixation Device, Open Approach (ICD-10-PCS; principal; 2016-12-03 20:27)
DX: S72.142A Displaced intertrochanteric fracture of left femur, initial encounter for closed fracture (principal); J44.9 Chronic obstructive pulmonary disease, unspecified; I73.9 Peripheral vascular disease, unspecified; Y92.009 Unspecified place in unspecified non-institutional (private) residence as the place of occurrence of the external cause; W18.30XA Fall on same level, unspecified, initial encounter; E03.9 Hypothyroidism, unspecified; K21.9 Gastro-esophageal reflux disease without esophagitis; Z66 Do not resuscitate
CPT/HCPCS: 71010; 73502; 76000; 80048; 80053; 81001; 84443; 85014; 85018; 85025; 85610; 85730; 86850; 86900; 86901; 93005; 94150; 96360; 96361; C1713; J0131; J0690; J1170; J1580; J2370; J2405; J3010; J7030

== ENCOUNTER 2017-10-21 17:11 | Emergency (ER) | payer MEDICARE ==
[~2017-10-21 17:11] MED LIST changes: +CIPR500T2 PO; +PHEN0.4T PO; +WALKER/ADULT/FO1 MIS
[2017-10-21 17:13] VITALS: BP 200/93; PULSE 107; RESP 22
[2017-10-21] MEDS ORDERED: SODIUM CHLOR 0.9% 1000 ML INJ 1,000 ML IV SCH (17:30)
[2017-10-21] MEDS ORDERED: PANTOPRAZOLE SODIUM 40 MG VIAL IVP ONE (17:30)
[2017-10-21] MEDS ORDERED: ONDANSETRON HCL 4 MG/2 ML VIAL IVP ONE (17:30)
[2017-10-21] MEDS ORDERED: SODIUM CHLORIDE 0.9% FLUSH 10 ML FLUSH IV FLUSH PRN (17:30)
[2017-10-21 17:32] VITALS: BP 154/84; PULSE 92; RESP 18; TEMP 98.2; O2SAT 93
--- NOTE | 2017-10-21 17:35 | PD ---
HPI Chief Complaint: Abdominal Pain Time Seen by Provider: 17:23 Travel History International Travel<30 days: No Contact w/Intl Traveler<30days: No Traveled to known affect area: No History of Present Illness HPI 87 years old female complains of abdominal pain with nausea vomiting. Patient states that symptoms started about 3 hours prior to arrival. Patient stated pain and cramping pain started the right upper quadrant abdomen radiation to right chest and right side of the neck. Patient denies any fever chills. Patient denies any coughing congestion. Patient denies any dysuria or frequency. Patient denies any vaginal discharge or bleeding. On a scale of 1- 10 the pain is a 10. Patient has history of indigestion recently. Patient has not taken any medication for that. Patient has history hypothyroidism and on levothyroxine. Patient has history of dependent edema and was put on Lasix. Patient stopped taking Lasix recently because of frequent urination. PFSH Past Medical History Arthritis: Yes Asthma: No Autoimmune Disease: No Heart Rhythm Problems: No Cancer: No Cardiovascular Problems: Yes (denies cardiovascular, has persistent dependant edema) High Cholesterol: No Chest Pain: No Congestive Heart Failure: No COPD: No Cerebrovascular Accident: No Diabetes: No Endocrine: Yes Gastrointestinal Disorders: Yes GERD: No Genitourinary: No Hiatal Hernia: No Immune Disorder: No Musculoskeletal: Yes Neurologic: Yes Psychiatric: No Reproductive: No Respiratory: Yes (copd, smoker for many years. [facility]) Sleep Apnea: No Thyroid Disease: Yes Ulcer: No ?: Not Past Surgical History Tonsillectomy: Yes Other Surgery: No Social History Alcohol Use: Yes (Socially) Tobacco Use: No Substance Use: No Allergies-Medications (Allergen,Severity, Reaction): Coded Allergies: No Known Allergies (Unverified Adverse Reaction, Unknown, 10/21/17) Reported Meds & Prescriptions Reported Meds & Active Scripts Active Levothyroxine (Levothyroxine Sodium) 112 Mcg Tab 112 Mcg PO DAILY Review of Systems General / Constitutional: No: Fever Eyes: No: Visual changes HENT: No: Headaches Cardiovascular: No: Chest Pain or Discomfort Respiratory: No: Shortness of Breath Gastrointestinal: Positive: Nausea, Vomiting, Abdominal Pain Genitourinary: No: Dysuria Musculoskeletal: No: Pain Skin: No Rash Neurologic: No: Weakness Psychiatric: No: Depression Endocrine: No: Polydipsia Hematologic/Lymphatic: No: Easy Bruising Physical Exam Narrative GENERAL: Well-nourished, well-developed patient. SKIN: Focused skin assessment warm/dry. HEAD: Normocephalic. EYES: No scleral icterus. No injection or drainage. NECK: Supple, trachea midline. No JVD or lymphadenopathy. CARDIOVASCULAR: Regular rate and rhythm without murmurs, gallops, or rubs. RESPIRATORY: Breath sounds equal bilaterally. No accessory muscle use. GASTROINTESTINAL: Abdomen soft, nondistended. Patient has moderate tenderness to palpation right upper quadrant of the abdomen. No rebound tenderness. No mass. MUSCULOSKELETAL: No cyanosis, or edema. BACK: Nontender without obvious deformity. No CVA tenderness. Neurologic exam normal. Data Data Last Documented VS Vital Signs Date Time Temp Pulse Resp B/P (MAP) Pulse Ox O2 Delivery O2 Flow Rate FiO2 10/21/17 19:26 82 16 120/56 (77) Room Air 10/21/17 18:05 98.6 94 Orders Orders Complete Blood Count With Diff (10/21/17 17:30) Comprehensive Metabolic Panel (10/21/17 17:30) Lipase (10/21/17 17:30) Prothrombin Time / Inr (Pt) (10/21/17 17:30) Act Partial Throm Time (Ptt) (10/21/17 17:30) Urinalysis - C+S If Indicated (10/21/17 17:30) Ct Abd/Pel W Iv Contrast(Rout) (10/21/17 17:30) Iv Access Insert/Monitor (10/21/17 17:30) Ecg Monitoring (10/21/17 17:30) Oximetry (10/21/17 17:30) Ondansetron Inj (Zofran Inj) (10/21/17 17:30) Pantoprazole Inj (Protonix Inj) (10/21/17 17:30) Sodium Chlor 0.9% 1000 Ml Inj (Ns 1000 M (10/21/17 17:30) Sodium Chloride 0.9% Flush (Ns Flush) (10/21/17 17:30) Iohexol 350 Inj (Omnipaque 350 Inj) (10/21/17 19:04) Labs Laboratory Tests Test 10/21/17 17:54 White Blood Count 9.3 TH/MM3 Red Blood Count 4.81 MIL/MM3 Hemoglobin 15.1 GM/DL Hematocrit 44.3 % Mean Corpuscular Volume 92.0 FL Mean Corpuscular Hemoglobin 31.4 PG Mean Corpuscular Hemoglobin Concent 34.1 % Red Cell Distribution Width 13.2 % Platelet Count 192 TH/MM3 Mean Platelet Volume 8.2 FL Neutrophils (%) (Auto) 86.0 % Lymphocytes (%) (Auto) 8.0 % Monocytes (%) (Auto) 3.9 % Eosinophils (%) (Auto) 0.1 % Basophils (%) (Auto) 2.0 % Neutrophils # (Auto) 8.0 TH/MM3 Lymphocytes # (Auto) 0.7 TH/MM3 Monocytes # (Auto) 0.4 TH/MM3 Eosinophils # (Auto) 0.0 TH/MM3 Basophils # (Auto) 0.2 TH/MM3 CBC Comment DIFF FINAL Differential Comment Prothrombin Time 10.6 SEC Prothromb Time International Ratio 1.0 RATIO Activated Partial Thromboplast Time 25.2 SEC Blood Urea Nitrogen 17 MG/DL Creatinine 0.77 MG/DL Random Glucose 154 MG/DL Total Protein 8.2 GM/DL Albumin 4.4 GM/DL Calcium Level 9.8 MG/DL Alkaline Phosphatase 79 U/L Aspartate Amino Transf (AST/SGOT) 11 U/L Alanine Aminotransferase (ALT/SGPT) 11 U/L Total Bilirubin 0.7 MG/DL Sodium Level 141 MEQ/L Potassium Level 3.6 MEQ/L Chloride Level 107 MEQ/L Carbon Dioxide Level 25.9 MEQ/L Anion Gap 8 MEQ/L Estimat Glomerular Filtration Rate 71 ML/MIN Lipase 114 U/L [facility] Medical Decision Making Medical Screen Exam Complete: Yes Emergency Medical Condition: Yes Interpretation(s) Last Impressions Abdomen/Pelvis CT 10/21/17 1810 Signed Impressions: Service Date/Time: Saturday, October 21, 2017 18:57 - CONCLUSION: 1. Mildly distended gallbladder but no inflammatory change identified on CT. 2. Oval shaped presumed complex cyst in the right adnexa measuring up to 7.3 x 4.2 cm. 3. 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 Small left adnexal cyst as well. 4. No bowel obstruction, free air or free fluid. Jeffery Oliveira MD 1952 PM. CBC within normal limits. WBC 9.3. 86 neutrophil. CMP within normal limits. Differential Diagnosis Differential diagnosis including cholecystitis, pyelonephritis, nephrolithiasis , colitis. Narrative Course 87 years old female with right upper quadrant abdominal pain and nausea vomiting. Normal saline solution 70 cc an hour. Protonix 40 mg IV. Zofran 4 mg IV. 1950 8 PM. Reexamination patient is asymptomatic. Diagnosis Primary Impression: Gallbladder colic Patient Instructions: General Instructions Additional Instructions: Advised patient to follow with local physician and director of patient safety. Return if increase abdominal pain, persistent nausea vomiting. Med/Other Pt SpecificInfo: Prescription(s) given, No Change to Meds Scripts Ondansetron Odt (Zofran Odt) 4 Mg Tab 4 MG SL Q6HR Y for Nausea/Vomiting, #10 TAB 0 Refills Prov: Luis Eduardo Tamayo MD 10/21/17 Pantoprazole (Protonix) 20 Mg Tab 20 MG PO DAILY for Reflux, #30 TAB 0 Refills Prov: Luis Eduardo Tamayo MD 10/21/17 Disposition: 01 DISCHARGE HOME Condition: Stable Luis Eduardo Tamayo MD Oct 21, 2017 17:35
[2017-10-21 17:37] VITALS: O2SAT 93
[2017-10-21 18:04] LABS: BASOPHIL # 0.2 TH/MM3 (0-0.2); EOSINOPHIL % 0.1 % (0.0-4.0); HEMATOCRIT 44.3 % (35.0-46.0); HEMOGLOBIN 15.1 GM/DL (11.6-15.3); LYMPHOCYTE # 0.7 TH/MM3 (1.0-4.8); MEAN CORPUSCULAR HEMOGLOBIN 31.4 PG (27.0-34.0); MEAN CORPUSCULAR HGB CONC 34.1 % (32.0-36.0); MEAN PLATELET VOLUME 8.2 FL (7.0-11.0); MONO % 3.9 % (0.0-8.0); MONOCYTE # 0.4 TH/MM3 (0-0.9); PLATELET COUNT 192 TH/MM3 (150-450); RED BLOOD COUNT 4.81 MIL/MM3 (4.00-5.30); RED CELL DISTRIBUTION WIDTH 13.2 % (11.6-17.2); WHITE BLOOD COUNT 9.3 TH/MM3 (4.0-11.0)
[2017-10-21 18:05] VITALS: BP 165/68; PULSE 102; RESP 18; TEMP 98.6; O2SAT 94
[2017-10-21 18:14] LABS: CHLORIDE 107 MEQ/L (98-107); SODIUM (NA) 141 MEQ/L (136-145)
[2017-10-21 18:17] LABS: CALCIUM 9.8 MG/DL (8.5-10.1)
[2017-10-21 18:18] LABS: ALBUMIN 4.4 GM/DL (3.4-5.0); BICARBONATE 25.9 MEQ/L (21.0-32.0); BLOOD UREA NITROGEN 17 MG/DL (7-18); GLUCOSE,RANDOM 154 MG/DL (74-106)
[2017-10-21 18:19] LABS: PROTHROMBIN TIME - PATIENT 10.6 SEC (9.8-11.6)
[2017-10-21 18:21] LABS: ALT (GPT) 11 U/L (10-53); AST (GOT) 11 U/L (15-37); CREATININE 0.77 MG/DL (0.50-1.00); GLOMERULAR FILTRATION RATE 71 ML/MIN (>89)
[2017-10-21 18:22] LABS: TOTAL BILIRUBIN ADULT 0.7 MG/DL (0.2-1.0)
[2017-10-21 18:23] LABS: TOTAL PROTEIN 8.2 GM/DL (6.4-8.2)
[2017-10-21 18:24] LABS: ALKALINE PHOSPHATASE 79 U/L (45-117)
[2017-10-21] MEDS ORDERED: IOHEXOL 350 MG/ML 10 ML VIAL (for RAD DIAG) IVCONTRAST ONE (19:04)
[2017-10-21 19:26] VITALS: BP 120/56; PULSE 82; RESP 16
--- NOTE | 2017-10-21 19:35 | RADRPT ---
EXAM DATE/TIME: 10/21/2017 18:57 [facility] COMPARISON: No previous studies available for comparison. INDICATIONS : Right upper quadrant pain. IV CONTRAST: 90 cc Omnipaque 350 (iohexol) IV ORAL CONTRAST: No oral contrast ingested. RADIATION DOSE: 14.62 CTDIvol (mGy) MEDICAL HISTORY : None SURGICAL HISTORY : Left hip surgery. ENCOUNTER: Initial ACUITY: 2 days PAIN SCALE: 5/10 LOCATION: Right upper quadrant TECHNIQUE: Volumetric scanning of the abdomen and pelvis was performed. Using automated exposure control and ad justment of the mA and/or kV according to patient size, radiation dose was kept as low as reasonably achievable to obtain optimal diagnostic quality images. DICOM format image data is available electro nically for review and comparison. FINDINGS: There is a small 3 mm nodule right lung base. Minimal scarring at the bases. No acute findings in the liver, spleen, adrenals, kidneys or pancreas. Gallbladder is mildly distende d. No gallstones or biliary ductal dilatation. There is an oval shaped 7.3 x 4.2 cm complex cystic-appearing lesion in the right adnexa. Marked pelv ic varices on the left side but appear to be related to the gonadal vein. Colonic diverticula noted, especially sigmoid without evidence for diverticulitis small hiatal hernia . Mild scoliosis. CONCLUSION: 1. Mildly distended gallbladder but no inflammatory change identified on CT. 2. Oval shaped presumed complex cyst in the right adnexa measuring up to 7.3 x 4.2 cm. 3. 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 Small left adnexal cyst as well. 4. No bowel obstruction, free air or free fluid. Jeffery Oliveira MD on October 21, 2017 at 19:28 Board Certified Radiologist. This report was verified electronically.
[2017-10-21] MEDS ORDERED: PANT20 PO (20:00)
[2017-10-21] MEDS ORDERED: ZOFR4TAB3 SL (20:00)
[2017-10-21 20:26] VITALS: BP 116/56
== END 2017-10-21 20:28 | disposition home or self-care (01) ==
LOC: PHED 17:11
DX: K80.20 Calculus of gallbladder without cholecystitis without obstruction (principal); N83.201 Unspecified ovarian cyst, right side; E03.9 Hypothyroidism, unspecified; M19.90 Unspecified osteoarthritis, unspecified site; J44.9 Chronic obstructive pulmonary disease, unspecified; E07.9 Disorder of thyroid, unspecified; Z79.899 Other long term (current) drug therapy
CPT/HCPCS: 74177; 80053; 83690; 85025; 85610; 85730; 96361; 96374; 96375; 99284; C9113; J2405; J7030; Q9967

== ENCOUNTER 2017-10-22 05:32 | Emergency (ER) | payer MEDICARE ==
[~2017-10-22] VITALS: Ht 154.9 cm; Wt 69.3 kg
[~2017-10-22 05:32] MED LIST changes: -CIPR500T2 PO; +PANT20 PO; -PHEN0.4T PO; -WALKER/ADULT/FO1 MIS; +ZOFR4TAB3 SL
[2017-10-22 06:10] VITALS: BP 156/68; PULSE 97; RESP 18; TEMP 97.6; O2SAT 95
--- NOTE | 2017-10-22 07:57 | PD ---
HPI Chief Complaint: Abdominal Pain Time Seen by Provider: 07:38 Travel History International Travel<30 days: No Contact w/Intl Traveler<30days: No Traveled to known affect area: No History of Present Illness HPI This 87-year-old female is complaining of abdominal pain. She was seen in the emergency department yesterday with abdominal pain. At that time she was having some right-sided pain with nausea and a small amount of vomiting. She was seen by Dr. Tamayo. A CT scan was done which showed some distention of the gallbladder without inflammatory changes. She was also noted to have a complex cyst in the right adnexa. There is no evidence of bowel obstruction. Patient was given IV fluids Protonix and Zofran and felt better and was released. It was thought her pain might have been secondary to gallbladder disease she says that about a half hour after getting home she had recurrence of pain though she thinks the pain was in a different area was more on the left side. Been having the pain throughout the night but she says she is not having pain now. She has no history of abdominal surgery. She says she had trouble swallowing when she was at home. We did give her some water to drink here and she was able to swallow it but she said that it abdullahi when it was going down. PFSH Past Medical History Arthritis: Yes Asthma: No Autoimmune Disease: No Heart Rhythm Problems: No Cancer: No Cardiovascular Problems: Yes (denies cardiovascular, has persistent dependant edema) High Cholesterol: No Chest Pain: No Congestive Heart Failure: No COPD: No Cerebrovascular Accident: No Diabetes: No Endocrine: Yes Gastrointestinal Disorders: Yes GERD: No Genitourinary: No Hiatal Hernia: No Immune Disorder: No Musculoskeletal: Yes Neurologic: Yes Psychiatric: No Reproductive: No Respiratory: Yes (copd, smoker for many years. [facility]) Sleep Apnea: No Thyroid Disease: Yes Ulcer: No Past Surgical History Tonsillectomy: Yes Other Surgery: No Social History Alcohol Use: Yes (Socially) Tobacco Use: No Substance Use: No Allergies-Medications (Allergen,Severity, Reaction): Coded Allergies: No Known Allergies (Verified Adverse Reaction, Unknown, 10/22/17) Reported Meds & Prescriptions Reported Meds & Active Scripts Active Zofran Odt (Ondansetron Odt) 4 Mg Tab 4 Mg SL Q6HR PRN Protonix (Pantoprazole Sodium) 20 Mg Tab 20 Mg PO DAILY Levothyroxine (Levothyroxine Sodium) 112 Mcg Tab 112 Mcg PO DAILY Review of Systems General / Constitutional: No: Fever, Chills Eyes: No: Diploplia, Blurred Vision HENT: No: Headaches, Vertigo Cardiovascular: No: Chest Pain or Discomfort, Palpitations Respiratory: No: Cough, Shortness of Breath Gastrointestinal: Positive: Abdominal Pain, Dysphagia, No: Vomiting, Hematochezia Genitourinary: No: Urgency, Frequency Musculoskeletal: No: Myalgias, Arthralgias Skin: No Rash, No Itching Neurologic: No: Weakness Psychiatric: No: Anxiety Endocrine: No: Heat Intolerance Physical Exam Narrative GENERAL: Well-developed female SKIN: Focused skin assessment warm/dry. HEAD: Atraumatic. Normocephalic. EYES: Pupils equal and round. No scleral icterus. No injection or drainage. ENT: No nasal bleeding or discharge. Mucous membranes pink and moist. NECK: Trachea midline. No JVD. CARDIOVASCULAR: Regular rate and rhythm. No murmur appreciated. RESPIRATORY: No accessory muscle use. Clear to auscultation. Breath sounds equal bilaterally. GASTROINTESTINAL: Abdomen soft, non-tender, nondistended. Hepatic and splenic margins not palpable. MUSCULOSKELETAL: No obvious deformities. No clubbing. No cyanosis. No edema. NEUROLOGICAL: Awake and alert. No obvious cranial nerve deficits. Motor grossly within normal limits. Normal speech. PSYCHIATRIC: Appropriate mood and affect; insight and judgment normal. Data Data Last Documented VS Vital Signs Date Time Temp Pulse Resp B/P (MAP) Pulse Ox O2 Delivery O2 Flow Rate FiO2 10/22/17 09:03 82 16 129/57 (81) 97 Room Air 10/22/17 06:10 97.6 Orders Orders Complete Blood Count With Diff (10/22/17 07:50) Comprehensive Metabolic Panel (10/22/17 07:50) Lipase (10/22/17 07:50) Sodium Chlor 0.9% 1000 Ml Inj (Ns 1000 M (10/22/17 08:00) Pantoprazole Inj (Protonix Inj) (10/22/17 08:00) Us Abdomen Gallbladder (10/22/17 07:50) Urinalysis - C+S If Indicated (10/22/17 07:52) Al-Mag Hy-Si 40-40-4 Mg/Ml Liq (Mag-Al P (10/22/17 08:00) Labs Laboratory Tests Test 10/22/17 08:20 White Blood Count 9.2 TH/MM3 Red Blood Count 4.64 MIL/MM3 Hemoglobin 14.6 GM/DL Hematocrit 43.4 % Mean Corpuscular Volume 93.6 FL Mean Corpuscular Hemoglobin 31.5 PG Mean Corpuscular Hemoglobin Concent 33.7 % Red Cell Distribution Width 13.5 % Platelet Count 196 TH/MM3 Mean Platelet Volume 8.6 FL Neutrophils (%) (Auto) 80.7 % Lymphocytes (%) (Auto) 13.2 % Monocytes (%) (Auto) 5.5 % Eosinophils (%) (Auto) 0.2 % Basophils (%) (Auto) 0.4 % Neutrophils # (Auto) 7.5 TH/MM3 Lymphocytes # (Auto) 1.2 TH/MM3 Monocytes # (Auto) 0.5 TH/MM3 Eosinophils # (Auto) 0.0 TH/MM3 Basophils # (Auto) 0.0 TH/MM3 CBC Comment DIFF FINAL Differential Comment Urine Collection Type CLEAN CATCH Urine Color YELLOW Urine Turbidity CLEAR Urine pH 5.0 Urine Specific [place] GREATER/EQUAL 1.030 Urine Protein 30 mg/dL Urine Glucose (UA) NEG mg/dL Urine Ketones TRACE mg/dL Urine Occult Blood NEG Urine Nitrite NEG Urine Bilirubin NEG Urine Urobilinogen 0.2 MG/DL Urine Leukocyte Esterase NEG Urine WBC 0-2 /hpf Urine Squamous Epithelial Cells 6-8 /hpf Urine Bacteria OCC /hpf Microscopic Urinalysis Comment CULT NOT INDICATED Urine Collection Time 08:20 Blood Urea Nitrogen 15 MG/DL Creatinine 0.96 MG/DL Random Glucose 129 MG/DL Total Protein 8.2 GM/DL Albumin 4.5 GM/DL Calcium Level 9.6 MG/DL Alkaline Phosphatase 75 U/L Aspartate Amino Transf (AST/SGOT) 11 U/L Alanine Aminotransferase (ALT/SGPT) 12 U/L Total Bilirubin 0.9 MG/DL Sodium Level 142 MEQ/L Potassium Level 3.4 MEQ/L Chloride Level 106 MEQ/L Carbon Dioxide Level 28.6 MEQ/L Anion Gap 7 MEQ/L Estimat Glomerular Filtration Rate 55 ML/MIN Lipase 129 U/L [facility] Medical Decision Making Medical Screen Exam Complete: Yes Emergency Medical Condition: Yes Medical Record Reviewed: Yes Differential Diagnosis Differential includes biliary disease, gastritis, ulcer disease, complicated ovarian cyst Narrative Course Patient is not having pain now. I did order an ultrasound because there was concern yesterday that she might have biliary disease was noted on CT scan that her gallbladder was distended. Ultrasound of the gallbladder is negative. Her lab work is unremarkable. She has remained pain-free. She did have complaint of some burning with swallowing and I recommended that she take the Protonix and Zofran. She will be referred to GI. She does not have a primary care physician at this time. Diagnosis Primary Impression: Gastritis Referrals: Andrew Darden MD Disposition: 01 DISCHARGE HOME Condition: Stable Eric Guerra MD Oct 22, 2017 07:57
[2017-10-22 08:00] VITALS: BP 128/67; PULSE 65; RESP 16; O2SAT 96
[2017-10-22] MEDS ORDERED: SODIUM CHLOR 0.9% 1000 ML INJ 1,000 ML IV SCH (08:00)
[2017-10-22] MEDS ORDERED: PANTOPRAZOLE SODIUM 40 MG VIAL IV PUSH ONE (08:00)
[2017-10-22] MEDS ORDERED: ALUMINUM/MAGNESIUM/SIMETH 30 ML CUP PO ONE (08:00)
--- NOTE | 2017-10-22 08:50 | RADRPT ---
EXAM DATE/TIME: 10/22/2017 08:25 [facility] COMPARISON: No previous studies available for comparison. INDICATIONS : Right upper quadrant pain. MEDICAL HISTORY : Arthritis. Osteoporosis. Thyroid disease. Pitting edema. COPD. Dyspnea. UTIs. Heartburn. SURGICAL HISTORY : Tonsillectomy. Leg surgery. ENCOUNTER: Initial ACUITY: 2 days PAIN SCORE: 10/10 LOCATION: Right upper quadrant MEASUREMENTS: LIVER: 15.8 cm length COMMON DUCT: 6 mm RIGHT KIDNEY: 11.0 x 3.8 x 4.3 cm FINDINGS: LIVER: There is a mild increased echogenicity in the liver parenchyma. The liver appears to be within normal limits for size. No dilated biliary ducts are demonstrated. The portal system is patent. There is no evidence of ascites. COMMON DUCT: No intraluminal mass or stone visualized. GALLBLADDER: Contains no stones, demonstrates no wall thickening or pericholecystic fluid. PANCREAS: Not well visualized RIGHT KIDNEY: No evidence of hydronephrosis. There is some thinning of the renal parenchyma. CONCLUSION: 1. No evidence of gallstones or biliary tract obstruction. 2. Increased echogenicity within the liver suggestive of some fatty infiltration. 3. No hydronephrosis. Christiano Aguirre MD on October 22, 2017 at 8:47 Board Certified Radiologist. This report was verified electronically.
[2017-10-22 08:52] LABS: BILIRUBIN, URINE NEG (NEG); BLOOD, URINE NEG (NEG); GLUCOSE,URINE NEG (NEG); KETONE, URINE TRACE mg/dL (NEG); NITRITE,URINE NEG (NEG); URINE COLOR YELLOW (YELLW/STRAW); URINE LEUKOCYTE ESTERASE NEG (NEG)
[2017-10-22 08:56] LABS: AUTOMATED NEUTROPHIL # 7.5 TH/MM3 (1.8-7.7); BASOPHIL % 0.4 % (0.0-2.0); EOSINOPHIL % 0.2 % (0.0-4.0); HEMATOCRIT 43.4 % (35.0-46.0); HEMOGLOBIN 14.6 GM/DL (11.6-15.3); LYMPH % 13.2 % (9.0-44.0); LYMPHOCYTE # 1.2 TH/MM3 (1.0-4.8); MEAN CELL VOLUME 93.6 FL (80.0-100.0); MEAN CORPUSCULAR HEMOGLOBIN 31.5 PG (27.0-34.0); MEAN CORPUSCULAR HGB CONC 33.7 % (32.0-36.0); MEAN PLATELET VOLUME 8.6 FL (7.0-11.0); MONO % 5.5 % (0.0-8.0); MONOCYTE # 0.5 TH/MM3 (0-0.9); NEUT % 80.7 % (16.0-70.0); PLATELET COUNT 196 TH/MM3 (150-450); RED BLOOD COUNT 4.64 MIL/MM3 (4.00-5.30); RED CELL DISTRIBUTION WIDTH 13.5 % (11.6-17.2); WHITE BLOOD COUNT 9.2 TH/MM3 (4.0-11.0)
[2017-10-22 09:02] LABS: WBC, URINE 0-2 /hpf (0-5)
[2017-10-22 09:03] VITALS: BP 129/57; PULSE 82; RESP 16; O2SAT 97
[2017-10-22 09:03] LABS: BACTERIA, URINE OCC /hpf
[2017-10-22 09:08] LABS: CHLORIDE 106 MEQ/L (98-107); SODIUM (NA) 142 MEQ/L (136-145)
[2017-10-22 09:12] LABS: CALCIUM 9.6 MG/DL (8.5-10.1)
[2017-10-22 09:13] LABS: ALBUMIN 4.5 GM/DL (3.4-5.0); BICARBONATE 28.6 MEQ/L (21.0-32.0); BLOOD UREA NITROGEN 15 MG/DL (7-18); GLUCOSE,RANDOM 129 MG/DL (74-106)
[2017-10-22 09:16] LABS: ALT (GPT) 12 U/L (10-53); AST (GOT) 11 U/L (15-37); CREATININE 0.96 MG/DL (0.50-1.00); GLOMERULAR FILTRATION RATE 55 ML/MIN (>89)
[2017-10-22 09:17] LABS: TOTAL BILIRUBIN ADULT 0.9 MG/DL (0.2-1.0); TOTAL PROTEIN 8.2 GM/DL (6.4-8.2)
[2017-10-22 09:19] LABS: ALKALINE PHOSPHATASE 75 U/L (45-117)
[2017-10-22 10:09] VITALS: BP 118/59; PULSE 60; RESP 16; O2SAT 98
== END 2017-10-22 10:40 | disposition home or self-care (01) ==
LOC: PHED 05:32
DX: K29.70 Gastritis, unspecified, without bleeding (principal); M19.90 Unspecified osteoarthritis, unspecified site; J44.9 Chronic obstructive pulmonary disease, unspecified; E07.9 Disorder of thyroid, unspecified; Z87.891 Personal history of nicotine dependence; Z79.899 Other long term (current) drug therapy
CPT/HCPCS: 76705; 80053; 81001; 83690; 85025; 96361; 96374; 99284; C9113; J7030

== ENCOUNTER 2018-09-04 02:46 | Observation (INO) ==
[2018-09-04 03:48] LABS: Chloride 107 meq/L (98-107); Sodium 139 meq/L (136-145)
[2018-09-04 03:51] LABS: Calcium 9.1 mg/dL (8.5-10.1)
[2018-09-04 03:52] LABS: Activated Partial Thrombo Time 28.5 sec (23.4-31.7); Albumin 4.4 g/dL (3.4-5.0); Anion Gap 4 meq/L (5-15); Blood Urea Nitrogen 19 mg/dL (7-18); Glucose,Random 149 mg/dL (74-106); Lipase 139 U/L (73-393); Magnesium 2.2 mg/dL (1.5-2.5); Prothrombin Time 10.1 sec (9.8-11.6)
[2018-09-04] MEDS ORDERED: Pantoprazole Inj 40 MG Vial IV.PUSH ONE (03:54)
[2018-09-04 03:55] LABS: Alanine Aminotransferase 13 U/L (10-53); Aspartate Aminotransferase 14 U/L (15-37); Glomerular Filtration Rate 64 mL/min (>89)
[2018-09-04 03:56] LABS: Total Protein 7.7 g/dL (6.4-8.2)
[2018-09-04 03:58] LABS: Alkaline Phosphatase 80 U/L (45-117)
[2018-09-04 04:01] LABS: Baso % (Auto) 0.5 % (0.0-2.0); Eos # (Auto) 0.1 th/mm3 (0.0-0.4); Eos % (Auto) 1.3 % (0.0-4.0); Hematocrit 45.5 % (35.0-46.0); Hemoglobin 15.2 gm/dL (11.6-15.3); Lymph % (Auto) 14.4 % (9.0-44.0); Mean Corpuscular HGB Conc 33.4 % (32.0-36.0); Mean Corpuscular Hemoglobin 31.5 pg (27.0-34.0); Mean Corpuscular Volume 94.4 fL (80.0-100.0); Mean Platelet Volume 8.8 fL (7.0-11.0); Mono # (Auto) 0.5 th/mm3 (0.0-0.9); Mono % (Auto) 6.5 % (0.0-8.0); Neut # (Auto) 5.3 th/mm3 (1.8-7.7); Neut % (Auto) 77.3 % (16.0-70.0); Platelet Count 162 th/mm3 (150-450); Red Blood Count 4.81 mil/mm3 (4.00-5.30); Red Cell Distribution Width 12.4 % (11.6-17.2); White Blood Count 6.9 th/mm3 (4.0-11.0)
[2018-09-04 04:12] LABS: Creatine Kinase 95 U/L (26-192)
--- NOTE | 2018-09-04 05:58 | CT ---
EXAM DATE: 09/04/2018 4:37 AM EST AGE/SEX: 88 years / Female INDICATIONS: Abdominal pain for two days. CLINICAL DATA: This is the patient's initial encounter. Patient reports that signs and symptoms have been present for 1 day and indicates a pain score of 5/10. MEDICAL/SURGICAL HISTORY: Hypothyroidism. Fracture of femur. . ORAL CONTRAST: No oral contrast ingested. RADIATION DOSE: 15.67 CTDI (mGy) COMPARISON: [facility], CT ABDOMEN & PELVIS W CONTRAST, 10/21/2017. . TECHNIQUE: Multiple contiguous axial images were obtained through the abdomen and pelvis following b olus infusion of 71 ml Omnipaque 350 (iohexol) nonionic water-soluble contrast as a single exam dos e. No oral contrast ingested. Using automated exposure control and adjustment of the mA and/or kV ac cording to patient size, radiation dose was kept as low as reasonably achievable to obtain optimal di agnostic quality images. DICOM format image data is available electronically for review and comparis on. FINDINGS: Lower Lungs: Slight atelectasis in the anterior lateral left lung base. Liver: The liver has a homogeneous density without space-occupying lesion. There is no dilation of th e biliary tree. Gallstones. Spleen: Homogeneous density without enlargement. Pancreas: Unremarkable without mass or calcification. Kidneys: Normal in size and shape. No evidence of mass or hydronephrosis. Adrenal Glands: Unremarkable. Aorta: The aorta and proximal iliac vessels are grossly unremarkable without aneurysmal dilation. Bowel/Mesentery: Distal colonic diverticulosis. No abnormal dilatation, wall thickening or focal inf lammatory changes clearly identified. Small bowel is unremarkable. Incidental duodenal diverticulum. Abdominal Wall: Intact. Retroperitoneum: No evidence of adenopathy in the retrocrural, para-aortic, or deep pelvic regions. Bladder: Contours are smooth. Reproductive Organs: Stable 7.5 cm oblong hyperdense right adnexal mass. Prominent left gonadal vari leonardo. No free pelvic fluid. Inguinal: The inguinal region is unremarkable without evidence of adenopathy. Bony Structures: Left total hip arthroplasty. Degenerative changes. CONCLUSION: Stable CT appearance of the abdomen and pelvis. No definite acute findings. Electronically signed by: Fran Rothman MD Board Certified Radiologist 09/04/2018 5:57 AM EST
[2018-09-04 06:19] LABS: Bilirubin,Urine Negative (Negative); Clarity,Urine Clear (Clear); Color,Urine Yellow (Yellw/Straw); Glucose,Urine (UA) Negative (Negative); Leukocyte Esterase,Urine Negative (Negative); Nitrite,Urine Negative (Negative); PH,Urine 5.5 (5.0-8.5); Urobilinogen,Urine 0.2 mg/dL (Less than 2)
[2018-09-04 06:29] LABS: RBC,Urine 0-3 /hpf (0-3); Squamous Epithelial Cell,Urine 0-5 /hpf (0-5)
--- NOTE | 2018-09-04 06:36 | XR ---
EXAM DATE: 09/04/2018 3:40 AM EST AGE/SEX: 88 years / Female INDICATIONS: Lower chest pain. CLINICAL DATA: This is the patient's initial encounter. Patient reports that signs and symptoms have been present for 1 day and indicates a pain score of 3/10. MEDICAL/SURGICAL HISTORY: . Arthritis. Osteoporosis. Thyroid disease. Pitting edema. COPD. Dysp raymundo. UTIs. Heartburn. . Tonsillectomy. Leg surgery COMPARISON: [facility], XR CHEST PA AND LAT, 03/25/2018. . FINDINGS: A single AP view of the chest demonstrates the lungs to be symmetrically aerated without evidence of mass, infiltrate or effusion. The cardiomediastinal contours are unremarkable. Osseous structures a re intact. CONCLUSION: No acute disease Electronically signed by: Fran Rothman MD Board Certified Radiologist 09/04/2018 6:34 AM EST
--- NOTE | 2018-09-04 06:38 | ED ---
HPI General Chief Complaint: Abdominal Pain Stated Complaint: Abd pain x last night Time Seen by Provider: 09/04/18 03:23 Source: patient Mode of arrival: ambulatory Limitations: no limitations History of Present Illness HPI narrative: 88-year-old female presents to the emergency department by private transportation the care of her spouse for evaluation of epigastric pain radiating to the right upper quadrant and into the chest retrosternal with associated throat tightness neck pain and shortness of breath. No nausea no vomiting no sweats. No back pain. Patient states that she did have a heavy meal for dinner with pork tenderloin and all of oil and wine. Patient states that she became concerned when she started having chest pain that radiated into her neck causing tightness in her neck and throat with shortness of breath. No nausea or vomiting or any numbness tingling or weakness. Patient states symptoms began shortly after dinner. Patient is unaware of any history of gallstones or gallbladder disease. Patient had similar symptom in the remote past but has not had any episodes since that time. Patient cannot recall when she was seen. Patient does have history of hypothyroidism but denies any chronic history of CAD arrhythmia hypertension dyslipidemia diabetes tobaccoism or premature onset heart disease in her family. Patient also denies any pleuritic chest pain or recent long distance travel or surgery or protracted illness/bedrest. Presently pain is 0/10 in intensity. Pain had been 7/10 in intensity. MD complaint: Reports abdominal pain and other (chest pain and shortness of breath) Onset (ago): hour(s) Pain Consistency: constant Location: Reports RUQ and epigastric (retrosternal) Severity: severe Severity scale (1-10): 7 Quality: Reports cramping, aching, fullness, dull and other (tightness in her throat) Radiation: Reports epigastric and chest (retrosternal with throat tightness) Migration to: Reports RUQ and epigastric Relieving factors: nothing Exacerbating factors: nothing Context: Denies foreign travel, possible food poisoning, sick contacts, recent antibiotic use, recent surgery/procedure, recent injury and history of similar episodes Associated symptoms: Reports nausea; Denies vomiting, diarrhea, fever, chills, constipation, dysuria, hematemesis, hematochezia, melena, hematuria, anorexia and syncope Treatments prior to arrival: Denies NSAIDs, prescription analgesics and antacids Related Data Home Medications Medication Instructions Recorded Confirmed levothyroxine 125 mcg PO DAILY 09/04/18 09/04/18 Allergies Allergy/AdvReac Type Severity Reaction Status Date / Time No Known Allergies Allergy Verified 09/04/18 03:19 Review of Systems ROS: all other systems reviewed are negative [facility] Medical History Medical History History of hypothyroidism (Acute) Hx of fracture of femur (Acute) Social History Social History Substance History: No History of Abuse Second Hand Smoke Exposure: No Smoking Status: Former smoker Tobacco Type: Cigarettes How Often Do You Have a Drink Containing Alcohol: Monthly or less Recent Travel in [facility] within the Last 8 Weeks: No Recent Out of Country Travel within the Last 8 Weeks: No Immunization History Tetanus Immunization: Unsure Exam Narrative Exam Narrative: GENERAL: Well-nourished, well-developed patient. SKIN: Focused skin assessment warm/dry. HEAD: Normocephalic. EYES: No scleral icterus. No injection or drainage. NECK: Supple, trachea midline. No JVD or lymphadenopathy. CARDIOVASCULAR: Regular rate and rhythm without murmurs, gallops, or rubs. RESPIRATORY: Breath sounds equal bilaterally. No accessory muscle use. GASTROINTESTINAL: Abdomen soft, mild tenderness to palpation epigastric and right upper quadrant areas no guarding no rebound no clinical Wheat sign, nondistended. MUSCULOSKELETAL: No cyanosis, or edema. BACK: Nontender without obvious deformity. No CVA tenderness. Course Initial Documented Vital Signs Temperature 97.8 F 09/04/18 02:52 Pulse Rate 95 H 09/04/18 02:52 Blood Pressure 140/66 09/04/18 02:52 Pulse Oximetry 97 09/04/18 02:52 Last Documented Vital Signs Temperature 97.8 F 09/04/18 02:52 Pulse Rate 85 09/04/18 06:39 Respiratory Rate 18 09/04/18 06:38 Blood Pressure 148/64 H 09/04/18 06:38 Pulse Oximetry 95 09/04/18 06:39 Medical Decision Making MDM Narrative Medical decision making narrative: 88-year-old female with abdominal pain presents because of development of chest pain with throat tightness and shortness of breath. Risk factor profile is low other than age over 50 and female suspect possible biliary colic or cholecystitis. Patient had had a heavy meal//fatty meal prior to onset of symptoms however abdominal pain was not what brought her to the emergency room according to her but it was her chest pain that made her concerned she thought she was having a heart attack. IV access obtain EKG performed which shows sinus rhythm rate 87 right bundle branch block pattern this has been noted since previous EKG in [address] elevation injury pattern or ectopy noted Chest x-ray shows no infiltrate no vascular congestion no effusion no Troponin I less than 0.02, not elevated; CK and BNP values not elevated Chemistries and LFTs grossly within normal limits mild hyperglycemia of 149 CT abdomen pelvis shows gallstones but no acute process no evidence of gallbladder thickening dilatation ductal dilatation no evidence for cholecystitis per reading radiologist. Patient states chest pain has resolved. Patient risk factor profile female age 88 with chest pain that radiates throat with shortness of breath suspect may be reflective of esophageal spasm or secondary to biliary colic however recommend chest pain center protocol with second set of enzymes at 630 and patient is agreeable to this patient's case discussed with on-call medicine service for chest pain chest pain protocol and biliary colic without evidence for cholecystitis ascending cholangitis or choledocholithiasis. Discussed with DR Youssef Medical Screen Exam Complete: Yes Emergency Medical Condition: Yes Lab Data Result diagrams: 09/04/18 03:15 09/04/18 03:15 Lab Results 09/04/18 09/04/18 09/04/18 Range/Units 03:15 03:15 03:15 CBC w Diff Auto diff final WBC 6.9 (4.0-11.0) th/mm3 RBC 4.81 (4.00-5.30) mil/mm3 Hgb 15.2 (11.6-15.3) gm/dL Hct 45.5 (35.0-46.0) % MCV 94.4 (80.0-100.0) fL MCH 31.5 (27.0-34.0) pg MCHC 33.4 (32.0-36.0) % RDW 12.4 (11.6-17.2) % Plt Count 162 (150-450) th/mm3 MPV 8.8 (7.0-11.0) fL Neut % (Auto) 77.3 H (16.0-70.0) % Lymph % (Auto) 14.4 (9.0-44.0) % Grand % (Auto) 6.5 (0.0-8.0) % Eos % (Auto) 1.3 (0.0-4.0) % Baso % (Auto) 0.5 (0.0-2.0) % Neut # (Auto) 5.3 (1.8-7.7) th/mm3 Lymph # (Auto) 1.0 (1.0-4.8) th/mm3 Grand # (Auto) 0.5 (0.0-0.9) th/mm3 Eos # (Auto) 0.1 (0.0-0.4) th/mm3 Baso # (Auto) 0.0 (0.0-0.2) th/mm3 WBC Differential . Differential Comment . PT 10.1 (9.8-11.6) sec INR 1.0 Ratio APTT 28.5 (23.4-31.7) sec Sodium 139 (136-145) meq/L Potassium 4.0 (3.5-5.1) meq/L Chloride 107 (98-107) meq/L Carbon Dioxide 28.0 (21.0-32.0) meq/L Anion Gap 4 L (5-15) meq/L BUN 19 H (7-18) mg/dL Creatinine 0.84 (0.50-1.00) mg/dL Estimated GFR 64 L (>89) mL/min Random Glucose 149 H (74-106) mg/dL Calcium 9.1 (8.5-10.1) mg/dL Magnesium 2.2 (1.5-2.5) mg/dL Total Bilirubin 0.5 (0.2-1.0) mg/dL AST 14 L (15-37) U/L ALT 13 (10-53) U/L Alkaline Phosphatase 80 (45-117) U/L Total Creatine Kinase 95 (26-192) U/L Troponin I Less than 0.02 L (0.02-0.05) ng/mL B-Natriuretic Peptide (0-100) pg/mL Total Protein 7.7 (6.4-8.2) g/dL Albumin 4.4 (3.4-5.0) g/dL Lipase 139 (73-393) U/L Ur Collection Type Urine Color (Yellw/Straw) Urine Clarity (Clear) Urine pH (5.0-8.5) Ur Specific Buchanan (1.002-1.035) Urine Protein (Neg-Trace) mg/dL Urine Glucose (UA) (Negative) mg/dL Urine Ketones (Negative) mg/dL Urine Occult Blood (Negative) Urine Nitrate (Negative) Urine Bilirubin (Negative) Urine Urobilinogen (Less than 2) mg/dL Ur Leukocyte Esterase (Negative) Urine RBC (0-3) /hpf Ur Squamous Epith Cells (0-5) /hpf Micro UA Comment Ur Microscopic Review Urine Culture Comments Urine Collection Time hours 09/04/18 09/04/18 Range/Units 03:15 06:05 CBC w Diff WBC (4.0-11.0) th/mm3 RBC (4.00-5.30) mil/mm3 Hgb (11.6-15.3) gm/dL Hct (35.0-46.0) % MCV (80.0-100.0) fL MCH (27.0-34.0) pg MCHC (32.0-36.0) % RDW (11.6-17.2) % Plt Count (150-450) th/mm3 MPV (7.0-11.0) fL Neut % (Auto) (16.0-70.0) % Lymph % (Auto) (9.0-44.0) % Grand % (Auto) (0.0-8.0) % Eos % (Auto) (0.0-4.0) % Baso % (Auto) (0.0-2.0) % Neut # (Auto) (1.8-7.7) th/mm3 Lymph # (Auto) (1.0-4.8) th/mm3 Grand # (Auto) (0.0-0.9) th/mm3 Eos # (Auto) (0.0-0.4) th/mm3 Baso # (Auto) (0.0-0.2) th/mm3 WBC Differential Differential Comment PT (9.8-11.6) sec INR Ratio APTT (23.4-31.7) sec Sodium (136-145) meq/L Potassium (3.5-5.1) meq/L Chloride (98-107) meq/L Carbon Dioxide (21.0-32.0) meq/L Anion Gap (5-15) meq/L BUN (7-18) mg/dL Creatinine (0.50-1.00) mg/dL Estimated GFR (>89) mL/min Random Glucose (74-106) mg/dL Calcium (8.5-10.1) mg/dL Magnesium (1.5-2.5) mg/dL Total Bilirubin (0.2-1.0) mg/dL AST (15-37) U/L ALT (10-53) U/L Alkaline Phosphatase (45-117) U/L Total Creatine Kinase (26-192) U/L Troponin I (0.02-0.05) ng/mL B-Natriuretic Peptide 19 (0-100) pg/mL Total Protein (6.4-8.2) g/dL Albumin (3.4-5.0) g/dL Lipase (73-393) U/L Ur Collection Type Clean catch Urine Color Yellow (Yellw/Straw) Urine Clarity Clear (Clear) Urine pH 5.5 (5.0-8.5) Ur Specific Buchanan 1.020 (1.002-1.035) Urine Protein Negative (Neg-Trace) mg/dL Urine Glucose (UA) Negative (Negative) mg/dL Urine Ketones Negative (Negative) mg/dL Urine Occult Blood Negative (Negative) Urine Nitrate Negative (Negative) Urine Bilirubin Negative (Negative) Urine Urobilinogen 0.2 (Less than 2) mg/dL Ur Leukocyte Esterase Negative (Negative) Urine RBC 0-3 (0-3) /hpf Ur Squamous Epith Cells 0-5 (0-5) /hpf Micro UA Comment Culture not ind Ur Microscopic Review Microscopic reviewed Urine Culture Comments Culture not ind Urine Collection Time 605 hours Imaging Data Radiologist's impression: Chest X-Ray 09/04/18 03:23 CONCLUSION: No acute disease Abdomen/Pelvis CT 09/04/18 03:24 CONCLUSION: Stable CT appearance of the abdomen and pelvis. No definite acute findings. Discharge Plan Discharge Disposition Patient Disposition: ED Admit(ED Internal Use Only) Discharge Condition Condition: Stable Discharge Order Discharge Orders: ED Use Only Admit Order (Routine); Ordered 09/04/18 Ordered By: Pinky Appiah Discharge Details Diagnosis: Chest pain, Biliary colic Physicians Team ED Provider: Pinky Appiah Primary Care Provider: Primary Care Sissy Pool Rxs /Orders / Referrals /Forms Prescriptions: No Action levothyroxine 125 mcg Capsule 125 mcg PO DAILY RF: 0 Discharge Interventions Interventions: Vital Signs Last Done: 09/04/18 06:38 Status ED Status: With Doctor
[2018-09-04 06:55] LABS: Creatine Kinase 85 U/L (26-192)
[2018-09-04 10:41] LABS: Creatine Kinase 79 U/L (26-192)
[2018-09-04] MEDS ORDERED: Regadenoson Inj 0.4 MG/5 ML Syringe IV.PUSH ONE (10:51)
--- NOTE | 2018-09-04 11:01 | P.HPIM ---
History of Present Illness Primary Care Physician: No Primary Care Physician Chief Complaint: Stomach/chest pain History of Present Illness: 88-year-old female with known history of hypothyroidism who presented to the hospital for evaluation of abdominal/chest pain. Patient indicates that she is in normal state of health until approximately 7 PM last night after she ate dinner and had a glass of wine with her that she started developing a generalized abdominal pain that started in the mid abdomen rotating around and started going up into her chest and all the way up to the back of her throat. She states that the pain was a 12 /10 on a pain scale and that it was worst pain that she is ever experienced. She indicates that it became difficult to swallow because the pain was so severe. She tried to make herself vomit but was unsuccessful thinking that it may make her feel better. Because the pain was so severe and would not go away she thought that she may be having a heart attack so she asked her to bring her to the hospital. Patient had full workup with CT of the abdomen, chest x-ray, laboratory studies which were unremarkable. It was recommended by the ER physician that the patient be observed for chest pain at this time. Patient denied any shortness of breath, dyspnea, diaphoresis, lightheadedness, dizziness. Patient has never had any previous cardiac workup. Patient states that she has been in good health her whole life and only has thyroid problems and only one surgery because of hip fracture. Patient indicates that the pain went away once she got to the emergency department and she has not had any recurrence of the pain. Review of Systems Review of Systems: all other systems reviewed are negative Cardiovascular: Reports chest pain Gastrointestinal: Reports abdominal pain [facility] Medical History Medical History History of hypothyroidism (Acute) Surgical History Surgical History History of tonsillectomy (Acute) Hx of fracture of femur (Acute) Social History Social History Substance History: No History of Abuse Second Hand Smoke Exposure: No Smoking Status: Never smoker Tobacco Type: Cigarettes How Often Do You Have a Drink Containing Alcohol: Never Recent Travel in [facility] within the Last 8 Weeks: No Recent Out of Country Travel within the Last 8 Weeks: No Immunization History Tetanus Immunization: Unsure Medications and Allergies Allergies Allergy/AdvReac Type Severity Reaction Status Date / Time No Known Allergies Allergy Verified 09/04/18 03:19 Home Medications Medication Instructions Recorded Confirmed Type levothyroxine 125 mcg PO DAILY 09/04/18 09/04/18 History Active Medications: Active Medications Albuterol (Albuterol Neb (Prn)) 2.5 mg NEB UNSCH PRN PRN Reason: SHORTNESS OF BREATH/WHEEZING Albuterol (Duoneb Neb (Prn)) 1 ampul NEB UNSCH PRN PRN Reason: SHORTNESS OF BREATH/WHEEZING Nitroglycerin (Nitrostat Sl) 0.4 mg SL Q5M PRN PRN Reason: CHEST PAIN Sodium Chloride (Ns Flush) 2 ml IV.FLUSH PRN PRN PRN Reason: FLUSH AFTER USING IV ACCESS Sodium Chloride (Ns Flush) 2 ml IV.FLUSH BID ANJALI Sodium Chloride (Ns Flush) 2 ml IV.FLUSH PRN PRN PRN Reason: FLUSH AFTER USING IV ACCESS Physical Exam Vital signs: Vital Signs 09/04/18 02:52 09/04/18 03:25 09/04/18 03:29 Temperature 97.8 F Pulse Rate 95 H 87 89 Respiratory Rate 18 Blood Pressure 140/66 140/61 Pulse Oximetry 97 97 09/04/18 03:30 09/04/18 04:54 09/04/18 06:38 Temperature Pulse Rate 63 82 Respiratory Rate 20 18 Blood Pressure 103/44 L 148/64 H Pulse Oximetry 93 L 95 09/04/18 06:39 09/04/18 07:00 09/04/18 08:00 Temperature 96.8 F L Pulse Rate 85 88 74 Respiratory Rate 18 17 Blood Pressure 115/87 149/92 H Pulse Oximetry 95 95 97 09/04/18 10:30 Temperature Pulse Rate 61 Respiratory Rate Blood Pressure Pulse Oximetry Intake & Output 09/03/18 09/04/18 09/04/18 18:59 06:59 18:59 Output Total 350 / 350 Balance -350 / -350 Weight 72.2 kg Output: Urine 350 / 350 Narrative: GENERAL: Well-developed, well-nourished, in no acute distress. alert and orientated HEENT: Head is normocephalic without any lesions or masses noted. Facial features are symmetric. Eyes: Pupils equal round reactive to light. Extraocular muscles are intact. Conjunctivae were clear. Oropharyngeal: Pharynx without any erythema edema. Tongue is midline without deviation. Buccal mucosa is moist without any masses or lesions NECK: Supple without any masses. Trachea midline no deviation. No JVD, no bruits are appreciated CARDIAC: Regular rhythm, regular rate. S1/S2 are heard. No murmurs gallops or rubs. LUNGS: Clear to auscultation bilaterally. No wheeze, rhonchi or rales. No use of accessory muscles on inspiration or expiration. ABDOMEN: Soft, nontender. Nondistended. Bowel sounds heard in all 4 quadrants. No organomegaly or masses. Negative rebound, negative guarding EXTREMITIES: No edema, pulses are equal bilaterally. No cyanosis or clubbing NEUROLOGY: Mood and affect appear appropriate. Cranial nerves II through XII grossly intact. Muscle strength 5/5 in upper and lower extremities bilaterally. Deep tendon reflexes are 2+ in upper and lower extremities bilaterally. Results Labs CBC & Chem 7: 09/04/18 03:15 09/04/18 03:15 Imaging Impressions Chest X-Ray 09/04/18 03:23 CONCLUSION: No acute disease Abdomen/Pelvis CT 09/04/18 03:24 CONCLUSION: Stable CT appearance of the abdomen and pelvis. No definite acute findings. Caprini VTE Risk Assessment Caprini VTE Risk Assessment: Moderate/High Risk (score >= 2) Caprini Risk Assessment Model: Point Value = 1 Point Value = 2 Point Value = 3 Point Value = 5 Age 41-60 Minor surgery BMI > 25 kg/m2 Swollen legs Varicose veins or History of unexplained or recurrent spontaneous Oral contraceptives or hormone replacement Sepsis (< 1 month) Serious lung disease, including pneumonia (< 1 month) Abnormal pulmonary function Acute myocardial infarction Congestive heart failure (< 1 month) History of inflammatory bowel disease Medical patient at bed rest Age 61-74 Arthroscopic surgery Major open surgery (> 45 min) Laparoscopic surgery (> 45 min) Malignancy Confined to bed (> 72 hours) Immobilizing plaster cast Central venous access Age >= 75 History of VTE Family history of VTE Factor V Leiden Prothrombin [id number] Lupus anticoagulant Anticardiolipin antibodies Elevated serum homocysteine Heparin-induced thrombocytopenia Other congenital or acquired thrombophilia Stroke (< 1 month) Elective arthroplasty Hip, pelvis, or leg fracture Acute spinal cord injury (< 1 month) Prophylaxis Regimen: Total Risk Factor Score Risk Level Prophylaxis Regimen 0-1 Low Early ambulation 2 Moderate Order ONE of the following: *Sequential Compression Device (SCD) *Heparin 5000 units SQ BID 3-4 Higher Order ONE of the following medications: *Heparin 5000 units SQ TID *Enoxaparin/Lovenox 40 mg SQ daily (WT < 150 kg, CrCl > 30 mL/min) *Enoxaparin/Lovenox 30 mg SQ daily (WT < 150 kg, CrCl > 10-29 mL/min) *Enoxaparin/Lovenox 30 mg SQ BID (WT < 150 kg, CrCl > 30 mL/min) AND/OR *Sequential Compression Device (SCD) 5 or more Highest Order ONE of the following medications: *Heparin 5000 units SQ TID (Preferred with Epidurals) *Enoxaparin/Lovenox 40 mg SQ daily (WT < 150 kg, CrCl > 30 mL/min) *Enoxaparin/Lovenox 30 mg SQ daily (WT < 150 kg, CrCl > 10-29 mL/min) *Enoxaparin/Lovenox 30 mg SQ BID (WT < 150 kg, CrCl > 30 mL/min) AND *Sequential Compression Device (SCD) Assessment and Plan Plan Chest pain, atypical Patient with increased risk factors to include age Patient has been ruled out for acute coronary event with serial cardiac enzymes are negative Serial EKGs reviewed by myself which shows sinus rhythm without any changes Myocardial perfusion study was recommended to the patient because she thought she was having a heart attack. Patient initially agreed but when she found that she had to wait another hour and a half in order to have the testing performed she did not want to stay. The patient was notified that it would be imperative to rule out a cardiac condition with her presentation. Patient did understand and still is deferring to have any further testing done and she is planning to leave the hospital AGAINST MEDICAL ADVICE. We will continue monitor telemetry Continue aspirin, nitroglycerin as needed If myocardial perfusion study is unremarkable. Patient pain etiology could be GI in nature with indigestion, gastroesophageal reflux which seems to have improved. Patient would benefit from prescription of Protonix upon discharge. Hypothyroidism Continue home medications DVT prevention Sequential compression devices Discussed Condition With: Patient, nursing staff, at bedside, Dr. Abrams Discharge Planning: Patient left AGAINST MEDICAL ADVICE, despite discussing with her the need to stay and have further testing performed. Notify the patient that if she does have underlying cardiac issue she can have a acute coronary event upon leaving the hospital. Patient does understand and is persistent on leaving AGAINST MEDICAL ADVICE. Patient notified that she can return the hospital at any time for further evaluation and management. Would pursue testing at that time. H&P: Quality VTE Deep Vein Thrombosis/Pulmonary Embolism Present on Admission: No
[2018-09-04] MEDS ORDERED: Levothyroxine 125 MCG Tablet PO SCH (11:45)
[2018-09-04 12:31] VITALS: BP 143/67; PULSE 66; RESP 16; TEMP 97; O2SAT 92
--- NOTE | 2018-09-04 16:32 | ECG ---
Date Performed: 09/04/2018 Time Performed: 06:33:02 PTAGE: 88 years EKG: Sinus rhythm MARKED RIGHT AXIS DEVIATION RIGHT BUNDLE BRANCH BLOCK POSSIBLE OLD INFERIOR WALL INFARCT ABNORMAL EC G Since PREVIOUS TRACING , no significant change noted PREVIOUS TRACIN09/04/2018 03.20 DOCTOR: Sandra Stearns Interpretating Date/Time 09/04/2018 16:32:18
--- NOTE | 2018-09-04 16:32 | ECG ---
Date Performed: 09/04/2018 Time Performed: 03:20:25 PTAGE: 88 years EKG: Sinus rhythm MARKED RIGHT AXIS DEVIATION RIGHT BUNDLE BRANCH BLOCK POSSIBLE OLD INFERIOR WALL MYOCARDIAL INFARCTI ON Compared to previous tracing, there has been no significant serial change. ABNORMAL ECG PREVIOUS TRACING : 12/03/2016 12.40 DOCTOR: Sandra Stearns Interpretating Date/Time 09/04/2018 16:31:56
--- NOTE | 2018-09-04 16:32 | ECG ---
Date Performed: 09/04/2018 Time Performed: 09:57:03 PTAGE: 88 years EKG: SINUS BRADYCARDIA INDETERMINATE AXIS RIGHT BUNDLE BRANCH BLOCK POSSIBLE OLD INFERIOR WALL I NFARCT ABNORMAL ECG Since PREVIOUS TRACING , no significant change noted PREVIOUS TRACIN09/04/2018 06.33 DOCTOR: Sandra Stearns Interpretating Date/Time 09/04/2018 16:32:37
== END 2018-09-04 13:16 | disposition left against medical advice (07) ==
LOC: PHEDA 02:46 → PHED 02:46 → PH3 08:00
PROVIDERS: ADMIT Hospitalist; ATTEND Hospitalist
DX: R07.89 Other chest pain; E03.9 Hypothyroidism, unspecified; R94.31 Abnormal electrocardiogram [ECG] [EKG]; F17.210 Nicotine dependence, cigarettes, uncomplicated; Z79.890 Hormone replacement therapy
CPT/HCPCS: 71010; 71045; 74177; 80053; 81001; 82550; 83520; 83690; 83735; 83880; 84484; 85025; 85610; 85730; 90774; 93005; 96374; 99285; C8952; C9113; G0378; Q9967